=== PATIENT | male | born 1950 | race Hispanic/Latino ===

== ENCOUNTER 2017-08-10 07:41 | Inpatient (IN) | payer OTHER ==
[2017-08-07 11:16] VITALS: BP 160/88
[2017-08-07 11:24] LABS: BASOPHILS % (AUTO) 0.7 % (0.0-5.0); EOSINOPHILS % (AUTO) 2.9 % (0.0-8.0); HEMATOCRIT 41.7 % (42-54); LYMPHOCYTES % (AUTO) 24.6 % (21.0-51.0); MEAN CORPUSCULAR HEMOGLOBIN 29.9 pg (27.0-33.0); MEAN CORPUSCULAR HGB CONC 34.6 g/dL (32.0-36.0); MEAN CORPUSCULAR VOLUME 86.2 fL (79-99); MONOCYTES % (AUTO) 7.1 % (3.0-13.0); NEUTROPHILS % (AUTO) 64.7 % (40.0-77.0); PLATELET COUNT (AUTO) 221 K/uL (130-400); RED BLOOD CELL COUNT(AUTO) 4.83 MIL/uL (4.50-6.20); RED CELL DISTRIBUTION WIDTH 13.2 % (11.0-15.5); WHITE BLOOD COUNT (AUTO) 7.5 K/uL (4.8-10.8)
[2017-08-07 11:26] LABS: APPEARANCE,URINE Clear (CLEAR); BILIRUBIN,URINE Negative (NEGATIVE); COLOR,URINE Yellow (YELLOW); GLUCOSE, URINE (UA) 250 mg/dL (NEGATIVE); KETONES,URINE Negative (NEGATIVE); LEUKOCYTE ESTERASE ,URINE Negative (NEGATIVE); NITRATE,URINE Negative (NEGATIVE); OCCULT BLOOD,URINE Nonhemolyzed Trace (NEGATIVE); PH,URINE 5.5 (5.0-8.0); PROTEIN,URINE Negative (NEGATIVE)
[2017-08-07 11:30] LABS: CREATININE 1.1 mg/dL (0.5-1.5); POTASSIUM 4.5 mmol/L (3.5-5.1)
[2017-08-07 11:35] LABS: INR 0.93 (0.85-1.15); PARTIAL THROMBOPLASTIN TIME 24.9 SEC (26.3-35.5); PROTHROMBIN TIME 9.8 SEC (9.6-11.6)
[2017-08-07 11:50] LABS: BACTERIA,URINE Rare /HPF (None Seen); RBC,URINE 0-1 /HPF (0-1); SQUAMOUS EPITHELIAL CELL,UR Rare /LPF (0-2); WBC,URINE 0-1 /HPF (0-1)
[2017-08-10] VITALS (12 sets, daily range): BP systolic 113–181; BP diastolic 56–107
[~2017-08-10] VITALS: Ht 172.7 cm; Wt 99.9 kg
[~2017-08-10 07:41] MED LIST: ASPI-1181 PO; ENAL10TA PO; LEVO75TA10 PO; METF500T6 PO
[2017-08-10] MEDS ORDERED: ENAL10TA PO (08:41)
[2017-08-10] MEDS ORDERED: SODIUM CHLORIDE 0.9% 1000ML 1,000 ML IV ONE (08:48)
[2017-08-10] MEDS: CEFUROXIME SODIUM 1.5 GM VIAL IVP SCH (10:00)
[2017-08-10] MEDS ORDERED: LIDOCAINE HCL 2% 20ML ONE (10:16)
[2017-08-10] MEDS ORDERED: IOPAMIDOL-370 100 ML VIAL IV ONE (10:16)
[2017-08-10] MEDS ORDERED: ISOVUE-370 50ML VIAL IV ONE (10:16)
[2017-08-10] MEDS ORDERED: NITROGLYCERIN 5 MG/ML 10 ML VIAL IV ONE (10:16)
[2017-08-10] MEDS ORDERED: BIVALIRUDIN 250 MG/VIAL IV ONE (10:17)
[2017-08-10] MEDS ORDERED: FENTANYL CITRATE PF 50 MCG/1 ML 2ML VIAL ONE (10:55)
[2017-08-10] MEDS ORDERED: MIDAZOLAM HCL 1 MG/ML 2ML VIAL ONE (10:55)
[2017-08-10] MEDS ORDERED: SODIUM CHLORIDE 0.9% 1000ML 1,000 ML IV SCH (11:29)
[2017-08-10] MEDS ORDERED: NITROGLYCERIN 0.4 MG SL TAB SL PRN (11:30)
[2017-08-10] MEDS ORDERED: GLUCAGON 1MG KIT 1 MG ML IM PRN (11:30)
[2017-08-10] MEDS ORDERED: METOPROLOL TARTRATE 1 MG/ML 5ML VIAL IV PRN (11:30)
[2017-08-10] MEDS: NITROGLYCERIN 1GM/1 INCH PACKET TD SCH ×4 (11:30→23:48)
[2017-08-10] MEDS ORDERED: DEXTROSE 50%-WATER 50 ML DISP.SYRIN IV PRN (11:30)
[2017-08-10] MEDS ORDERED: CALCIUM CHLORIDE 100 MG/ML 10 ML SYG IVP ONE (12:00)
[2017-08-10] MEDS ORDERED: HEPARIN SODIUM 1000UNIT/ML 10ML VIAL IV ONE (12:00)
[2017-08-10] MEDS ORDERED: CEFUROXIME 1.5GM+NS 100ML 100 ML IV SCH (14:00)
[2017-08-10] MEDS ORDERED: WATER FOR INJECTION,STERILE 20 ML VIAL IJ SCH (14:15)
[2017-08-10 15:04] LABS: HEMOGLOBIN A1C 8.4 % (4.0-6.0)
[2017-08-10] MEDS ORDERED: ATORVASTATIN CALCIUM 20 MG TABLET PO SCH (21:00)
[2017-08-10] MEDS ORDERED: ACETAMINOPHEN 325 MG TAB PO PRN (23:15)
[2017-08-10] MEDS ORDERED: POTASSIUM CHLORIDE 10% ELIXIR 20 MEQ/15 ML UDCUP PO PRN (23:15)
[2017-08-10] MEDS ORDERED: POTASSIUM CHLORIDE 20 MEQ ERTAB PO PRN (23:15)
[2017-08-10] MEDS ORDERED: POTASSIUM CHLORIDE 20MEQ/100ML 100 ML IV PRN (23:15)
[2017-08-11] VITALS (19 sets, daily range): BP systolic 113–190; BP diastolic 57–106
[2017-08-11] MEDS: NITROGLYCERIN 1GM/1 INCH PACKET TD SCH (05:03)
[2017-08-11 05:11] LABS: BASOPHILS % (AUTO) 0.7 % (0.0-5.0); EOSINOPHILS % (AUTO) 1.8 % (0.0-8.0); HEMATOCRIT 39.6 % (42-54); LYMPHOCYTES % (AUTO) 23.6 % (21.0-51.0); MEAN CORPUSCULAR HEMOGLOBIN 29.4 pg (27.0-33.0); MEAN CORPUSCULAR HGB CONC 33.7 g/dL (32.0-36.0); MEAN CORPUSCULAR VOLUME 87.4 fL (79-99); MONOCYTES % (AUTO) 7.3 % (3.0-13.0); NEUTROPHILS % (AUTO) 66.6 % (40.0-77.0); PLATELET COUNT (AUTO) 204 K/uL (130-400); RED BLOOD CELL COUNT(AUTO) 4.53 MIL/uL (4.50-6.20); RED CELL DISTRIBUTION WIDTH 13.4 % (11.0-15.5); WHITE BLOOD COUNT (AUTO) 7.7 K/uL (4.8-10.8)
[2017-08-11 05:21] LABS: INR 0.95 (0.85-1.15); PARTIAL THROMBOPLASTIN TIME 24.5 SEC (26.3-35.5)
[2017-08-11 05:22] LABS: CREATININE 1.3 mg/dL (0.5-1.5); POTASSIUM 3.9 mmol/L (3.5-5.1)
[2017-08-11] MEDS ORDERED: LEVOTHYROXINE 75 MCG TABLET PO SCH (06:30)
[2017-08-11] MEDS ORDERED: BACITRACIN 50,000 UNIT VIAL ONE (06:40)
[2017-08-11] MEDS ORDERED: PAPAVERINE HCL 30 MG/ML 2ML VIAL ONE (06:40)
[2017-08-11] MEDS ORDERED: HEPARIN SODIUM 1000UNIT/ML 10ML VIAL ONE ×2 (06:40→09:07)
[2017-08-11] MEDS ORDERED: OCTYL 2-CYANOACRYLATE 1 EACH TP ONE (06:40)
[2017-08-11] MEDS ORDERED: NITROGLYCERIN 50 MG/D5% WATER 1 BOT ONE (06:57)
[2017-08-11] MEDS ORDERED: INSULIN HUMULIN R 100 UNIT/ML 3ML SQ SCH (07:30)
[2017-08-11] MEDS ORDERED: ASPIRIN 81 MG EC TAB PO SCH (09:00)
[2017-08-11] MEDS ORDERED: ENALAPRIL MALEATE 10 MG TABLET PO SCH (09:00)
[2017-08-11] MEDS ORDERED: PANTOPRAZOLE SODIUM 40 MG TABLET.DR PO SCH (09:00)
[2017-08-11] MEDS ORDERED: AMINOCAPROIC ACID 250 MG/ML 20 ML VIAL IV ONE (09:07)
[2017-08-11] MEDS ORDERED: PROTAMINE SULFATE 10 MG/ML 25ML VIAL IV ONE (09:07)
[2017-08-11] MEDS ORDERED: MIDAZOLAM HCL 1 MG/ML 5ML VIAL ONE (09:07)
[2017-08-11] MEDS ORDERED: AMIODARONE HCL 900MG/18ML IV ONE (09:07)
[2017-08-11] MEDS ORDERED: PROPOFOL 10 MG/ML 20ML VIAL IV ONE (09:07)
[2017-08-11] MEDS ORDERED: GLYCOPYRROLATE 0.2 MG/ML 5 ML VIAL ONE (09:07)
[2017-08-11] MEDS ORDERED: FENTANYL CITRATE PF 50 MCG/1 ML 20ML VIAL IJ ONE (09:07)
[2017-08-11] MEDS ORDERED: NOREPINEPHRINE BITARTRATE 1 MG/1 ML ML IV ONE (09:07)
[2017-08-11] MEDS ORDERED: CALCIUM CHLORIDE 100 MG/ML 10 ML SYG IVP ONE (09:07)
[2017-08-11] MEDS ORDERED: EPINEPHRINE 1 MG/ML AMPULE ONE (09:07)
[2017-08-11] MEDS ORDERED: NEOSTIGMINE METHYLSULFATE 1MG/ML IV ONE (09:07)
[2017-08-11] MEDS ORDERED: MILRINONE-D5W 20 MG/100 ML 0 ML IV ONE (09:07)
[2017-08-11] MEDS ORDERED: ROCURONIUM BROMIDE 10MG/1ML 5ML VL ONE ×2 (09:07→09:11)
[2017-08-11] MEDS ORDERED: LIDOCAINE PF 2% 5ML ABBOJECT ONE (09:07)
[2017-08-11] MEDS ORDERED: ESMOLOL HCL 10 MG/ML 10 ML VIAL ONE (09:07)
[2017-08-11] MEDS ORDERED: KETAMINE HCL 100 MG/ML 5ML VIAL IJ ONE (09:08)
[2017-08-11] MEDS ORDERED: SODIUM BICARB 8.4% 50ML SYRINGE ONE ×2 (09:11→14:26)
[2017-08-11] MEDS ORDERED: MIDAZOLAM HCL 1 MG/ML 2ML VIAL ONE (09:12)
[2017-08-11] MEDS ORDERED: SODIUM CHLORIDE 0.9% 1000ML 1,000 ML IV ONE (10:00)
[2017-08-11] MEDS: CEFUROXIME SODIUM 1.5 GM VIAL IVP SCH ×2 (11:47→22:01)
[2017-08-11 12:00] LABS: ABG BASE EXCESS -1.2 mmol/L (-2.0-3.0); ABG HCO3 24.6 mmol/L (21.0-28.0); ABG OXYGEN SATURATION 79.6 % (95.0-99.0); ABG PCO2 45 mmHg (35-48)
[2017-08-11] MEDS ORDERED: THROMBIN-JMI 5000 UNIT/VIAL TP ONE (12:02)
[2017-08-11] MEDS ORDERED: SODIUM CHLORIDE 0.9% 1000ML 1,000 ML IV SCH (14:15)
[2017-08-11] MEDS ORDERED: POTASSIUM PHOS 15 mMOL+NS250ML 250 ML IV PRN (14:15)
[2017-08-11] MEDS ORDERED: ALBUMIN (HUMAN) 5% 250 ML IV PRN (14:15)
[2017-08-11] MEDS ORDERED: CALCIUM GLUCONATE 1 GM in SODIUM CHLORIDE 0.9% 50 ML IV PRN (14:15)
[2017-08-11] MEDS ORDERED: EPINEPHRINE 2 MG in SODIUM CHLORIDE 0.9% 250 ML IV PRN (14:15)
[2017-08-11] MEDS ORDERED: ONDANSETRON HCL 4 MG/2 ML VIAL IV PRN (14:15)
[2017-08-11] MEDS ORDERED: NITROGLYCERIN 50 MG/D5% WATER 250 BOT IV SCH (14:15)
[2017-08-11] MEDS ORDERED: AMINOCAPROIC ACID 15,000 MG in SODIUM CHLORIDE 0.9% 250 ML IV SCH (14:15)
[2017-08-11] MEDS ORDERED: SODIUM CHLORIDE 0.9% 250 ML IV PRN (14:15)
[2017-08-11] MEDS ORDERED: ACETAMINOPHEN 650 MG SUPPOSITORY RC PRN (14:15)
[2017-08-11] MEDS ORDERED: MORPHINE SULFATE 2 MG/ML 1ML SYG IV PRN (14:15)
[2017-08-11] MEDS ORDERED: GLUCAGON 1MG KIT 1 MG ML IM PRN (14:15)
[2017-08-11] MEDS ORDERED: HYDROCODONE/ACETAMINOPHEN 5/325 MG TAB PO PRN ×2 (14:15)
[2017-08-11] MEDS ORDERED: SODIUM BICARB 8.4% 50ML SYRINGE IV PRN (14:15)
[2017-08-11] MEDS ORDERED: SODIUM CHLORIDE 0.9% 10 ML VIAL IVP PRN (14:15)
[2017-08-11] MEDS ORDERED: DEXTROSE 50%-WATER 50 ML DISP.SYRIN IV PRN (14:15)
[2017-08-11] MEDS ORDERED: NOREPINEPHRINE 4MG/NS 250ML 250 ML IV PRN (14:15)
[2017-08-11 14:21] LABS: ABG BASE EXCESS -5.8 mmol/L (-2.0-3.0); ABG HCO3 19.6 mmol/L (21.0-28.0); ABG OXYGEN SATURATION 98.1 % (95.0-99.0); ABG PCO2 38 mmHg (35-48)
[2017-08-11] MEDS ORDERED: MORPHINE SULFATE 10 MG/ML 1ML SYG ONE (14:24)
[2017-08-11 15:32] LABS: ABG BASE EXCESS -1.6 mmol/L (-2.0-3.0); ABG HCO3 23.9 mmol/L (21.0-28.0); ABG PCO2 43 mmHg (35-48)
[2017-08-11 15:43] LABS: HEMATOCRIT 37.4 % (42-54); MEAN CORPUSCULAR HEMOGLOBIN 29.6 pg (27.0-33.0); MEAN CORPUSCULAR VOLUME 86.8 fL (79-99); PLATELET COUNT (AUTO) 215 K/uL (130-400); RED BLOOD CELL COUNT(AUTO) 4.31 MIL/uL (4.50-6.20); RED CELL DISTRIBUTION WIDTH 13.4 % (11.0-15.5); WHITE BLOOD COUNT (AUTO) 16.2 K/uL (4.8-10.8)
[2017-08-11 15:49] LABS: CREATININE 1.3 mg/dL (0.5-1.5); MAGNESIUM 1.5 mg/dL (1.80-2.40); PHOSPHORUS 4.5 mg/dL (2.5-4.9); POTASSIUM 3.9 mmol/L (3.5-5.1)
[2017-08-11] MEDS: PROPOFOL 1000 MG/100 ML 100 ML IV PRN ×2 (16:11→18:33)
[2017-08-11] MEDS: NICARDIPINE HCL 100 MG in SODIUM CHLORIDE 0.9% 100 ML IV PRN ×2 (16:12→19:19)
[2017-08-11] MEDS: MAGNESIUM 2GM PREMIX 50ML 50 ML IV PRN (16:13)
[2017-08-11] MEDS: POTASSIUM CHLORIDE 20MEQ/100ML 100 ML IV PRN ×2 (16:24→21:07)
[2017-08-11 16:28] LABS: ABG HCO3 23.1 mmol/L (21.0-28.0); ABG OXYGEN SATURATION 93.2 % (95.0-99.0); ABG PCO2 41 mmHg (35-48)
[2017-08-11] MEDS: INSULIN REGULAR, HUMAN 3ML 100 UNIT in SODIUM CHLORIDE 0.9% 99 ML IV SCH ×2 (16:51)
[2017-08-11] MEDS ORDERED: FUROSEMIDE 10 MG/ML 4ML VIAL IV SCH (18:15)
[2017-08-11] MEDS ORDERED: LORAZEPAM 2 MG/ML 1 ML VIAL IVP PRN (18:15)
[2017-08-11] MEDS: MORPHINE SULFATE 4 MG/1ML SYG IV PRN ×2 (18:48→22:30)
[2017-08-11 20:22] LABS: ABG BASE EXCESS -2.5 mmol/L (-2.0-3.0); ABG OXYGEN SATURATION 95.1 % (95.0-99.0); ABG PCO2 42 mmHg (35-48)
[2017-08-11 21:03] LABS: MAGNESIUM 2.1 mg/dL (1.80-2.40); POTASSIUM 4.1 mmol/L (3.5-5.1)
[2017-08-11] MEDS: LORAZEPAM 2 MG/ML 1 ML VIAL IVP PRN (21:41)
[2017-08-11] MEDS: WATER FOR INJECTION,STERILE 20 ML VIAL IJ SCH (22:01)
[2017-08-11] MEDS ORDERED: CEFUROXIME 1.5GM+NS 100ML 100 ML IV SCH (22:15)
[2017-08-11] MEDS: IPRATROPIUM/ALBUTEROL SULFATE 3 ML SOLUTION IH SCH (22:18)
[2017-08-12] VITALS (25 sets, daily range): BP systolic 76–166; BP diastolic 42–92
[2017-08-12] MEDS: INSULIN REGULAR, HUMAN 3ML 100 UNIT in SODIUM CHLORIDE 0.9% 99 ML IV SCH ×2 (00:08)
[2017-08-12] MEDS: PROPOFOL 1000 MG/100 ML 100 ML IV PRN ×2 (00:09→10:24)
[2017-08-12] MEDS: POTASSIUM CHLORIDE 20MEQ/100ML 100 ML IV PRN (00:38)
[2017-08-12] MEDS: LORAZEPAM 2 MG/ML 1 ML VIAL IVP PRN (01:55)
[2017-08-12] MEDS: IPRATROPIUM/ALBUTEROL SULFATE 3 ML SOLUTION IH SCH ×6 (02:24→22:36)
[2017-08-12] MEDS: MORPHINE SULFATE 4 MG/1ML SYG IV PRN ×4 (04:20→21:00)
[2017-08-12 04:29] LABS: BASOPHILS % (AUTO) 0.2 % (0.0-5.0); HEMATOCRIT 40.3 % (42-54); LYMPHOCYTES % (AUTO) 5.4 % (21.0-51.0); MEAN CORPUSCULAR HGB CONC 34.1 g/dL (32.0-36.0); MEAN CORPUSCULAR VOLUME 87.9 fL (79-99); MONOCYTES % (AUTO) 8.5 % (3.0-13.0); NEUTROPHILS % (AUTO) 85.9 % (40.0-77.0); PLATELET COUNT (AUTO) 248 K/uL (130-400); RED BLOOD CELL COUNT(AUTO) 4.58 MIL/uL (4.50-6.20); RED CELL DISTRIBUTION WIDTH 13.5 % (11.0-15.5)
[2017-08-12 04:43] LABS: CREATININE 1.3 mg/dL (0.5-1.5); MAGNESIUM 2.2 mg/dL (1.80-2.40); PHOSPHORUS 2.6 mg/dL (2.5-4.9); POTASSIUM 4.4 mmol/L (3.5-5.1)
[2017-08-12] MEDS ORDERED: HYDRALAZINE HCL 20 MG/ML VIAL IV PRN (08:00)
[2017-08-12] MEDS: LEVOTHYROXINE 75 MCG TABLET PO SCH (08:28)
[2017-08-12] MEDS: FAMOTIDINE 20MG TAB 20 MG TAB PO SCH ×2 (08:28→20:09)
[2017-08-12] MEDS: ASPIRIN 81MG TAB.CHEW PO SCH (08:28)
[2017-08-12] MEDS: METOPROLOL TARTRATE 25 MG TAB PO SCH ×2 (08:29→20:11)
[2017-08-12 09:00] LABS: ABG BASE EXCESS 0.4 mmol/L (-2.0-3.0); ABG HCO3 25.4 mmol/L (21.0-28.0); ABG OXYGEN SATURATION 87.9 % (95.0-99.0); ABG PCO2 43 mmHg (35-48)
[2017-08-12] MEDS ORDERED: PANTOPRAZOLE SODIUM 40 MG TABLET.DR PO SCH (09:00)
[2017-08-12] MEDS ORDERED: FUROSEMIDE 10 MG/ML 4ML VIAL IV SCH (09:15)
[2017-08-12] MEDS: WATER FOR INJECTION,STERILE 20 ML VIAL IJ SCH ×2 (09:26→21:58)
[2017-08-12] MEDS: CEFUROXIME SODIUM 1.5 GM VIAL IVP SCH ×2 (09:26→21:58)
[2017-08-12 13:22] LABS: ABG BASE EXCESS 1.3 mmol/L (-2.0-3.0); ABG HCO3 26.5 mmol/L (21.0-28.0); ABG OXYGEN SATURATION 91.6 % (95.0-99.0); ABG PCO2 44 mmHg (35-48)
[2017-08-12 16:39] LABS: CREATININE 1.6 mg/dL (0.5-1.5); POTASSIUM 4.6 mmol/L (3.5-5.1)
[2017-08-12] MEDS ORDERED: VANCOMYCIN PROTOCOL PER PHARMACY IV SCH (18:30)
[2017-08-12] MEDS ORDERED: PROPOFOL 1000 MG/100 ML 100 ML IV ONE (18:46)
[2017-08-12] MEDS ORDERED: PROPOFOL 1000 MG/100 ML IV PRN (19:00)
[2017-08-12] MEDS ORDERED: VANCOMYCIN 2 GM in SODIUM CHLORIDE 0.9% 500ML 500 ML IV ONE (19:00)
[2017-08-12] MEDS ORDERED: LEVOFLOXACIN 500 MG/D5W 100 ML 100 ML IV SCH (19:00)
[2017-08-12] MEDS ORDERED: COMPOUND IV REFRIGERATED 1 EACH IVSOLN MISC PRN (19:00)
[2017-08-12] MEDS: ATORVASTATIN CALCIUM 40 MG TABLET PO SCH (20:09)
[2017-08-12] MEDS: ZOSYN 3.375GM+NS 50ML 50 ML IV SCH (20:09)
[2017-08-12] MEDS: ACETAMINOPHEN 325 MG TAB PO PRN (20:10)
[2017-08-12] MEDS: SODIUM CHLORIDE 0.9% 500ML 500 ML IV SCH (22:14)
[2017-08-12] MEDS ORDERED: AMIODARONE HCL 900MG/18ML IV ONE (23:00)
[2017-08-12] MEDS ORDERED: AMIODARONE HCL 150 MG in DEXTROSE 5%-WATER 100 ML IV SCH (23:45)
[2017-08-12] MEDS: AMIODARONE HCL 900 MG in DEXTROSE 5%-WATER 500 ML IV SCH (23:55)
[2017-08-13] VITALS (45 sets, daily range): BP systolic 83–166; BP diastolic 40–83
[2017-08-13 00:57] LABS: ABG BASE EXCESS -1.1 mmol/L (-2.0-3.0); ABG HCO3 23.3 mmol/L (21.0-28.0); ABG OXYGEN SATURATION 93.2 % (95.0-99.0); ABG PCO2 38 mmHg (35-48)
[2017-08-13] MEDS: MAGNESIUM 2GM PREMIX 50ML 50 ML IV PRN (01:34)
[2017-08-13] MEDS: IPRATROPIUM/ALBUTEROL SULFATE 3 ML SOLUTION IH SCH ×4 (02:00→13:38)
[2017-08-13] MEDS ORDERED: DILTIAZEM HCL 125 MG/25 ML VIAL IV ONE (02:36)
[2017-08-13] MEDS ORDERED: AMIODARONE HCL 900MG/18ML IV ONE (02:36)
[2017-08-13] MEDS ORDERED: AMIODARONE HCL 150 MG in DEXTROSE 5%-WATER 100 ML IV SCH (03:15)
[2017-08-13] MEDS: ZOSYN 3.375GM+NS 50ML 50 ML IV SCH ×3 (04:50→21:09)
[2017-08-13 06:05] LABS: BASOPHILS % (AUTO) 0.3 % (0.0-5.0); HEMATOCRIT 36.3 % (42-54); LYMPHOCYTES % (AUTO) 6.4 % (21.0-51.0); MEAN CORPUSCULAR HEMOGLOBIN 29.2 pg (27.0-33.0); MEAN CORPUSCULAR HGB CONC 32.9 g/dL (32.0-36.0); MEAN CORPUSCULAR VOLUME 88.8 fL (79-99); MONOCYTES % (AUTO) 6.3 % (3.0-13.0); PLATELET COUNT (AUTO) 147 K/uL (130-400); RED BLOOD CELL COUNT(AUTO) 4.09 MIL/uL (4.50-6.20); RED CELL DISTRIBUTION WIDTH 13.7 % (11.0-15.5); WHITE BLOOD COUNT (AUTO) 13.9 K/uL (4.8-10.8)
[2017-08-13 06:13] LABS: CREATININE 2.2 mg/dL (0.5-1.5); POTASSIUM 4.6 mmol/L (3.5-5.1)
[2017-08-13] MEDS: LEVOTHYROXINE 75 MCG TABLET PO SCH (06:19)
[2017-08-13] MEDS: ACETAMINOPHEN 325 MG TAB PO PRN (06:20)
[2017-08-13] MEDS: AMIODARONE HCL 900 MG in DEXTROSE 5%-WATER 500 ML IV SCH (06:33)
[2017-08-13] MEDS: METOPROLOL TARTRATE 1 MG/ML 5ML VIAL IV PRN ×3 (08:05→20:32)
[2017-08-13] MEDS: METOPROLOL TARTRATE 25 MG TAB PO SCH ×2 (09:00→21:10)
[2017-08-13] MEDS: ASPIRIN 81MG TAB.CHEW PO SCH (09:15)
[2017-08-13] MEDS: FAMOTIDINE 20MG TAB 20 MG TAB PO SCH (09:15)
[2017-08-13] MEDS: FENTANYL 2500MCG+NS 250ML 250 ML IV PRN (09:58)
[2017-08-13] MEDS ORDERED: GLUCAGON 1MG KIT 1 MG ML IM PRN (10:30)
[2017-08-13] MEDS ORDERED: DEXTROSE 50%-WATER 50 ML DISP.SYRIN IV PRN (10:30)
[2017-08-13] MEDS: MIDAZOLAM 100MG-0.9% NS 100ML 100 ML IV PRN (10:46)
[2017-08-13 11:27] LABS: ABG BASE EXCESS -1.7 mmol/L (-2.0-3.0); ABG HCO3 23.1 mmol/L (21.0-28.0); ABG OXYGEN SATURATION 94.5 % (95.0-99.0); ABG PCO2 40 mmHg (35-48)
[2017-08-13] MEDS: INSULIN HUMULIN R 100 UNIT/ML 3ML SQ SCH ×2 (12:43→16:30)
[2017-08-13] MEDS ORDERED: RENAL DOSE IV SCH (12:45)
[2017-08-13] MEDS: PHENYLEPHRINE HCL 50 MG in SODIUM CHLORIDE 0.9% 250 ML IV SCH (13:36)
[2017-08-13] MEDS ORDERED: VANCOMYCIN 1.5 GM in SODIUM CHLORIDE 0.9% 250 ML IV SCH (17:00)
[2017-08-13] MEDS: CLINDAMYCIN 900 MG/D5% WATER 50 ML IV SCH (18:00)
[2017-08-13] MEDS: IPRATROPIUM 0.5 MG/2.5 ML INH IH SCH ×2 (18:00→22:00)
[2017-08-13 18:14] LABS: CREATININE 2.3 mg/dL (0.5-1.5); POTASSIUM 4.4 mmol/L (3.5-5.1)
[2017-08-13] MEDS ORDERED: DIGOXIN 250 MCG/ML 2ML AMP IV ONE (20:00)
[2017-08-13] MEDS: DILTIAZEM 125MG+100 ML NS 125 ML IV SCH (20:24)
[2017-08-13] MEDS ORDERED: FUROSEMIDE 10 MG/ML 4ML VIAL IV SCH (21:00)
[2017-08-13] MEDS: ATORVASTATIN CALCIUM 40 MG TABLET PO SCH (21:10)
[2017-08-13] MEDS: SODIUM CHLORIDE 0.9% 500ML 500 ML IV SCH (21:11)
[2017-08-13 21:20] LABS: ABG BASE EXCESS -0.9 mmol/L (-2.0-3.0); ABG HCO3 25.7 mmol/L (21.0-28.0); ABG OXYGEN SATURATION 90.7 % (95.0-99.0); ABG PCO2 50 mmHg (35-48)
[2017-08-14] VITALS (24 sets, daily range): BP systolic 80–179; BP diastolic 49–87
[2017-08-14] MEDS ORDERED: INSULIN HUMULIN R 100 UNIT/ML 3ML ONE (00:08)
[2017-08-14] MEDS: IPRATROPIUM/ALBUTEROL SULFATE 3 ML SOLUTION IH SCH ×5 (00:46→23:56)
[2017-08-14] MEDS: CLINDAMYCIN 900 MG/D5% WATER 50 ML IV SCH ×3 (01:03→17:19)
[2017-08-14] MEDS: ACETAMINOPHEN ELIXIR 650 MG/20.3 ML UDCUP PEG PRN ×2 (01:04→12:40)
[2017-08-14 04:05] LABS: HEMATOCRIT 33.2 % (42-54); MEAN CORPUSCULAR HEMOGLOBIN 30.4 pg (27.0-33.0); MEAN CORPUSCULAR VOLUME 89.5 fL (79-99); PLATELET COUNT (AUTO) 189 K/uL (130-400); RED BLOOD CELL COUNT(AUTO) 3.71 MIL/uL (4.50-6.20); RED CELL DISTRIBUTION WIDTH 13.2 % (11.0-15.5); WHITE BLOOD COUNT (AUTO) 13.3 K/uL (4.8-10.8)
[2017-08-14 04:13] LABS: CREATININE 2.9 mg/dL (0.5-1.5); POTASSIUM 4.5 mmol/L (3.5-5.1)
[2017-08-14] MEDS: ZOSYN 3.375GM+NS 50ML 50 ML IV SCH (05:06)
[2017-08-14] MEDS: IPRATROPIUM 0.5 MG/2.5 ML INH IH SCH ×3 (06:00→22:00)
[2017-08-14] MEDS: METOPROLOL TARTRATE 1 MG/ML 5ML VIAL IV PRN ×2 (06:02→12:36)
[2017-08-14 06:04] LABS: ABG HCO3 24.3 mmol/L (21.0-28.0); ABG PCO2 52 mmHg (35-48)
[2017-08-14] MEDS: DILTIAZEM 125MG+100 ML NS 125 ML IV SCH (07:01)
[2017-08-14] MEDS ORDERED: INSULIN HUMULIN R 100 UNIT/ML 3ML SQ SCH ×3 (07:30)
[2017-08-14 07:37] LABS: ABG BASE EXCESS -4.3 mmol/L (-2.0-3.0); ABG HCO3 21.2 mmol/L (21.0-28.0); ABG OXYGEN SATURATION 91.9 % (95.0-99.0); ABG PCO2 41 mmHg (35-48)
[2017-08-14] MEDS ORDERED: PHARMACY COMMUNICATION MISC SCH ×2 (07:45→16:30)
[2017-08-14] MEDS ORDERED: SODIUM BICARB 50MEQ 50ML VIAL ONE (07:52)
[2017-08-14] MEDS ORDERED: CALCIUM GLUCONATE 1 GM in SODIUM CHLORIDE 0.9% 50 ML IV SCH (07:59)
[2017-08-14] MEDS: MIDAZOLAM 100MG-0.9% NS 100ML 100 ML IV PRN (08:19)
[2017-08-14] MEDS: FENTANYL 2500MCG+NS 250ML 250 ML IV PRN (08:20)
[2017-08-14] MEDS: LEVOTHYROXINE 75 MCG TABLET PO SCH (08:23)
[2017-08-14] MEDS: FAMOTIDINE 20MG TAB 20 MG TAB PO SCH (08:23)
[2017-08-14] MEDS: LACTOBACILLUS RHAMNOSUS GG 1 EACH CAP.SPRINK PO SCH (08:23)
[2017-08-14] MEDS: ASPIRIN 81MG TAB.CHEW PO SCH (08:23)
[2017-08-14] MEDS: METOPROLOL TARTRATE 25 MG TAB PO SCH ×2 (08:24→22:00)
[2017-08-14] MEDS: FUROSEMIDE 10 MG/ML 2ML VIAL IV SCH ×2 (08:24→19:43)
[2017-08-14] MEDS: AMIODARONE HCL 200 MG TABLET PO SCH ×3 (08:25→20:41)
[2017-08-14] MEDS: INSULIN HUMULIN R 100 UNIT/ML 3ML SQ SCH ×3 (11:59→23:55)
[2017-08-14 16:23] LABS: CREATININE 4.2 mg/dL (0.5-1.5); POTASSIUM 4.7 mmol/L (3.5-5.1)
[2017-08-14] MEDS ORDERED: SODIUM CHLORIDE 0.9% 1000ML 1,000 ML IV ONE (16:30)
[2017-08-14] MEDS ORDERED: RENAL DOSE IV ONE (16:30)
[2017-08-14] MEDS: SODIUM CHLORIDE 0.9% 1000ML 1,000 ML IV SCH (16:54)
[2017-08-14] MEDS ORDERED: ZOSYN 3.375GM+NS 50ML 50 ML IV SCH (17:00)
[2017-08-14] MEDS: HEPARIN SODIUM 5000UNIT/ML 1ML VIAL SQ SCH (17:20)
[2017-08-14] MEDS: CEFEPIME HCL 2 GM VIAL IVP SCH (17:22)
[2017-08-14] MEDS: WATER FOR INJECTION,STERILE 20 ML VIAL IJ SCH (17:22)
[2017-08-14] MEDS ORDERED: LEVOFLOXACIN 500 MG/D5W 100 ML 100 ML IV SCH (18:00)
[2017-08-14] MEDS: PHENYLEPHRINE HCL 50 MG in SODIUM CHLORIDE 0.9% 250 ML IV SCH (18:50)
[2017-08-14] MEDS: ALBUMIN (HUMAN) 5% 250 ML IV SCH (20:27)
[2017-08-14] MEDS: AMIODARONE HCL 900 MG in DEXTROSE 5%-WATER 500 ML IV SCH (20:33)
[2017-08-14] MEDS: ATORVASTATIN CALCIUM 40 MG TABLET PO SCH (20:41)
[2017-08-15] VITALS (24 sets, daily range): BP systolic 97–174; BP diastolic 53–86
[2017-08-15] MEDS: FENTANYL 2500MCG+NS 250ML 250 ML IV PRN (00:23)
[2017-08-15] MEDS: CLINDAMYCIN 900 MG/D5% WATER 50 ML IV SCH ×3 (01:45→17:31)
[2017-08-15] MEDS: HEPARIN SODIUM 5000UNIT/ML 1ML VIAL SQ SCH ×2 (03:34→17:31)
[2017-08-15 04:18] LABS: HEMATOCRIT 28.5 % (42-54); MEAN CORPUSCULAR HEMOGLOBIN 29.4 pg (27.0-33.0); MEAN CORPUSCULAR HGB CONC 32.9 g/dL (32.0-36.0); MEAN CORPUSCULAR VOLUME 89.3 fL (79-99); PLATELET COUNT (AUTO) 163 K/uL (130-400); RED BLOOD CELL COUNT(AUTO) 3.19 MIL/uL (4.50-6.20); RED CELL DISTRIBUTION WIDTH 13.5 % (11.0-15.5); WHITE BLOOD COUNT (AUTO) 12.5 K/uL (4.8-10.8)
[2017-08-15 04:25] LABS: POTASSIUM 4.6 mmol/L (3.5-5.1)
[2017-08-15 04:40] LABS: B-TYPE NATRIURETIC PEPTIDE 779 pg/mL (0-100)
[2017-08-15] MEDS: LEVOTHYROXINE 75 MCG TABLET PO SCH (05:14)
[2017-08-15] MEDS: INSULIN HUMULIN R 100 UNIT/ML 3ML SQ SCH ×4 (05:42→23:55)
[2017-08-15] MEDS: IPRATROPIUM/ALBUTEROL SULFATE 3 ML SOLUTION IH SCH ×3 (06:21→19:20)
[2017-08-15] MEDS: SODIUM CHLORIDE 0.9% 1000ML 1,000 ML IV SCH (06:24)
[2017-08-15] MEDS: FUROSEMIDE 10 MG/ML 2ML VIAL IV SCH (07:45)
[2017-08-15] MEDS ORDERED: DEXTROSE 5 %-0.45 % NACL 1,000 ML IV SCH (07:45)
[2017-08-15] MEDS: METOPROLOL TARTRATE 1 MG/ML 5ML VIAL IV PRN (07:48)
[2017-08-15] MEDS: ALBUMIN (HUMAN) 5% 250 ML IV SCH (07:48)
[2017-08-15 08:10] LABS: ABG BASE EXCESS -5.3 mmol/L (-2.0-3.0); ABG HCO3 19.8 mmol/L (21.0-28.0); ABG OXYGEN SATURATION 91.7 % (95.0-99.0); ABG PCO2 38 mmHg (35-48)
[2017-08-15] MEDS ORDERED: SODIUM BICARB 50MEQ 50ML VIAL ONE (08:18)
[2017-08-15] MEDS: METOPROLOL TARTRATE 25 MG TAB PO SCH ×2 (09:33→20:14)
[2017-08-15] MEDS: FAMOTIDINE 20MG TAB 20 MG TAB PO SCH (09:33)
[2017-08-15] MEDS: ASPIRIN 81MG TAB.CHEW PO SCH (09:33)
[2017-08-15] MEDS: LACTOBACILLUS RHAMNOSUS GG 1 EACH CAP.SPRINK PO SCH (09:42)
[2017-08-15] MEDS: MIDAZOLAM 100MG-0.9% NS 100ML 100 ML IV PRN (09:51)
[2017-08-15] MEDS: AMIODARONE HCL 900 MG in DEXTROSE 5%-WATER 500 ML IV SCH (11:12)
[2017-08-15 11:22] LABS: % IRON SATURATION 7.8 % (30-44)
[2017-08-15] MEDS: 1/2 NORMAL SALINE 1,000 ML IV SCH (12:49)
[2017-08-15 14:23] LABS: CREATININE,URINE RANDOM 130 mg/dL (30-135); SODIUM,URINE RANDOM 34 mmol/l (40-220)
[2017-08-15] MEDS: METOCLOPRAMIDE 10 MG/2 ML VIAL IV SCH ×2 (14:52→22:44)
[2017-08-15] MEDS: WATER FOR INJECTION,STERILE 20 ML VIAL IJ SCH (17:30)
[2017-08-15] MEDS: CEFEPIME HCL 2 GM VIAL IVP SCH (17:30)
[2017-08-15] MEDS: ATORVASTATIN CALCIUM 40 MG TABLET PO SCH (20:14)
[2017-08-15] MEDS: ACETAMINOPHEN 325 MG TAB PO PRN (23:05)
[2017-08-15] MEDS: SODIUM CHLORIDE 0.9% 500ML 500 ML IV SCH (23:25)
[2017-08-16] VITALS (24 sets, daily range): BP systolic 97–163; BP diastolic 59–113
[2017-08-16] MEDS: FENTANYL 2500MCG+NS 250ML 250 ML IV PRN (00:12)
[2017-08-16] MEDS: IPRATROPIUM/ALBUTEROL SULFATE 3 ML SOLUTION IH SCH ×4 (00:24→18:59)
[2017-08-16] MEDS: 1/2 NORMAL SALINE 1,000 ML IV SCH (01:08)
[2017-08-16] MEDS: CLINDAMYCIN 900 MG/D5% WATER 50 ML IV SCH ×3 (01:08→17:08)
[2017-08-16] MEDS ORDERED: AMIODARONE HCL 900MG/18ML IV ONE (01:28)
[2017-08-16] MEDS: AMIODARONE HCL 900 MG in DEXTROSE 5%-WATER 500 ML IV SCH (01:34)
[2017-08-16] MEDS: HEPARIN SODIUM 5000UNIT/ML 1ML VIAL SQ SCH ×2 (03:20→15:22)
[2017-08-16 04:35] LABS: HEMATOCRIT 27.6 % (42-54); MEAN CORPUSCULAR HEMOGLOBIN 30.6 pg (27.0-33.0); MEAN CORPUSCULAR HGB CONC 34.2 g/dL (32.0-36.0); MEAN CORPUSCULAR VOLUME 89.4 fL (79-99); NUCLEATED RED BLOOD CELLS 0.1 % (0.0-0.19); PLATELET COUNT (AUTO) 165 K/uL (130-400); RED BLOOD CELL COUNT(AUTO) 3.09 MIL/uL (4.50-6.20); RED CELL DISTRIBUTION WIDTH 13.7 % (11.0-15.5); WHITE BLOOD COUNT (AUTO) 12.5 K/uL (4.8-10.8)
[2017-08-16 04:52] LABS: CREATININE 5.8 mg/dL (0.5-1.5); MAGNESIUM 2.5 mg/dL (1.80-2.40); PHOSPHORUS 5.1 mg/dL (2.5-4.9); POTASSIUM 4.3 mmol/L (3.5-5.1)
[2017-08-16] MEDS: LEVOTHYROXINE 75 MCG TABLET PO SCH (04:59)
[2017-08-16 05:27] LABS: ABG BASE EXCESS -5.2 mmol/L (-2.0-3.0); ABG OXYGEN SATURATION 95.3 % (95.0-99.0); ABG PCO2 38 mmHg (35-48)
[2017-08-16] MEDS: INSULIN HUMULIN R 100 UNIT/ML 3ML SQ SCH ×3 (05:42→18:06)
[2017-08-16] MEDS: METOCLOPRAMIDE 10 MG/2 ML VIAL IV SCH ×3 (06:01→23:58)
[2017-08-16] MEDS: LACTOBACILLUS RHAMNOSUS GG 1 EACH CAP.SPRINK PO SCH (08:52)
[2017-08-16] MEDS: ASPIRIN 81MG TAB.CHEW PO SCH (08:52)
[2017-08-16] MEDS: METOPROLOL TARTRATE 25 MG TAB PO SCH ×2 (08:53→20:57)
[2017-08-16] MEDS: FAMOTIDINE 20MG TAB 20 MG TAB PO SCH (08:53)
[2017-08-16] MEDS ORDERED: CALCIUM GLUCONATE 1 GM in SODIUM CHLORIDE 0.9% 50 ML IV SCH (09:00)
[2017-08-16] MEDS ORDERED: SODIUM BICARB 8.4% 50ML SYRINGE IVP SCH (09:00)
[2017-08-16] MEDS ORDERED: SODIUM BICARB 50MEQ 50ML VIAL IV SCH (09:15)
[2017-08-16] MEDS ORDERED: EPOETIN ALFA 10,000 UNIT/ML VIAL SQ SCH (10:15)
[2017-08-16] MEDS: CEFEPIME HCL 2 GM VIAL IVP SCH (17:03)
[2017-08-16] MEDS: WATER FOR INJECTION,STERILE 20 ML VIAL IJ SCH (17:03)
[2017-08-16] MEDS: ATORVASTATIN CALCIUM 40 MG TABLET PO SCH (20:57)
[2017-08-16] MEDS: AMIODARONE HCL 200 MG TABLET PO SCH (20:58)
[2017-08-17] VITALS (26 sets, daily range): BP systolic 104–173; BP diastolic 56–102
[2017-08-17] MEDS: INSULIN HUMULIN R 100 UNIT/ML 3ML SQ SCH ×5 (00:05→23:59)
[2017-08-17] MEDS: IPRATROPIUM/ALBUTEROL SULFATE 3 ML SOLUTION IH SCH ×4 (00:20→19:12)
[2017-08-17] MEDS: CLINDAMYCIN 900 MG/D5% WATER 50 ML IV SCH ×2 (00:51→12:00)
[2017-08-17] MEDS: HEPARIN SODIUM 5000UNIT/ML 1ML VIAL SQ SCH (03:55)
[2017-08-17 05:29] LABS: HEMATOCRIT 29.1 % (42-54); MEAN CORPUSCULAR HEMOGLOBIN 29.9 pg (27.0-33.0); MEAN CORPUSCULAR HGB CONC 33.9 g/dL (32.0-36.0); MEAN CORPUSCULAR VOLUME 88.1 fL (79-99); PLATELET COUNT (AUTO) 207 K/uL (130-400); RED CELL DISTRIBUTION WIDTH 13.9 % (11.0-15.5); WHITE BLOOD COUNT (AUTO) 12.9 K/uL (4.8-10.8)
[2017-08-17 05:39] LABS: BAND NEUTROPHILS % (MANUAL) 5 % (0-2); EOSINOPHILS % (MANUAL) 3 % (1-6); LYMPHOCYTES % (MANUAL) 12 % (22-44); MONOCYTES % (MANUAL) 11 % (2-9); SEGMENTED NEUTROPHILS % 69 % (40-70)
[2017-08-17 05:40] LABS: MAN.DIFF COMMENT-IMPRESSION MANUAL DIFFERENTIAL; PLATELET MORPHOLOGY COMMENT ADEQUATE
[2017-08-17 05:44] LABS: CREATININE 5.6 mg/dL (0.5-1.5); POTASSIUM 4.2 mmol/L (3.5-5.1)
[2017-08-17] MEDS: LEVOTHYROXINE 75 MCG TABLET PO SCH (05:56)
[2017-08-17 06:16] LABS: ABG BASE EXCESS -3.2 mmol/L (-2.0-3.0); ABG HCO3 22.1 mmol/L (21.0-28.0); ABG OXYGEN SATURATION 86.2 % (95.0-99.0); ABG PCO2 41 mmHg (35-48)
[2017-08-17] MEDS: METOCLOPRAMIDE 10 MG/2 ML VIAL IV SCH ×3 (06:50→22:45)
[2017-08-17] MEDS: METOPROLOL TARTRATE 1 MG/ML 5ML VIAL IV PRN ×2 (07:47→09:08)
[2017-08-17] MEDS: LACTOBACILLUS RHAMNOSUS GG 1 EACH CAP.SPRINK PO SCH (08:00)
[2017-08-17] MEDS: METOPROLOL TARTRATE 25 MG TAB PO SCH ×2 (08:00→11:53)
[2017-08-17] MEDS: FENTANYL 2500MCG+NS 250ML 250 ML IV PRN ×2 (08:00→19:19)
[2017-08-17 08:16] LABS: ABG BASE EXCESS -4.1 mmol/L (-2.0-3.0); ABG HCO3 21.4 mmol/L (21.0-28.0); ABG OXYGEN SATURATION 88.5 % (95.0-99.0); ABG PCO2 41 mmHg (35-48)
[2017-08-17] MEDS ORDERED: FUROSEMIDE 10 MG/ML 10ML VIAL ONE (08:36)
[2017-08-17] MEDS ORDERED: FUROSEMIDE 10 MG/ML 4ML VIAL IV SCH ×2 (09:00→13:00)
[2017-08-17] MEDS: MIDAZOLAM 100MG-0.9% NS 100ML 100 ML IV PRN ×2 (09:11→20:16)
[2017-08-17] MEDS: IRON SUCROSE COMPLEX 100 MG in SODIUM CHLORIDE 0.9% 50 ML IV SCH (11:48)
[2017-08-17] MEDS: AMIODARONE HCL 200 MG TABLET PO SCH ×2 (11:52→21:51)
[2017-08-17] MEDS: FAMOTIDINE 20MG TAB 20 MG TAB PO SCH (11:52)
[2017-08-17] MEDS: ASPIRIN 81MG TAB.CHEW PO SCH (11:53)
[2017-08-17] MEDS ORDERED: FUROSEMIDE 100 MG in SODIUM CHLORIDE 0.9% 90 ML IV SCH (13:00)
[2017-08-17] MEDS ORDERED: METOLAZONE 2.5 MG TABLET PO SCH (13:00)
[2017-08-17] MEDS: ACETAMINOPHEN ELIXIR 650 MG/20.3 ML UDCUP PEG PRN (13:19)
[2017-08-17 13:32] LABS: ABG BASE EXCESS -2.7 mmol/L (-2.0-3.0); ABG HCO3 22.9 mmol/L (21.0-28.0); ABG OXYGEN SATURATION 91.9 % (95.0-99.0); ABG PCO2 43 mmHg (35-48)
[2017-08-17] MEDS ORDERED: MEROPENEM 1GM IVPB PREMIXED 1 GM IV SCH (15:45)
[2017-08-17] MEDS ORDERED: LINEZOLID 600 MG/ISO-OSM 300 ML IV SCH (15:45)
[2017-08-17] MEDS: HEPARIN 25000 UNITS/250 ML D5W 250 ML IV SCH (16:14)
[2017-08-17] MEDS: MEROPENEM 1 GM VIAL IVP SCH (17:28)
[2017-08-17] MEDS: WATER FOR INJECTION,STERILE 5 ML VIAL INJ SCH (17:28)
[2017-08-17] MEDS: ATORVASTATIN CALCIUM 40 MG TABLET PO SCH (21:52)
[2017-08-18] VITALS (24 sets, daily range): BP systolic 95–141; BP diastolic 53–75
[2017-08-18] MEDS: IPRATROPIUM/ALBUTEROL SULFATE 3 ML SOLUTION IH SCH ×4 (00:26→18:39)
[2017-08-18] MEDS: METOPROLOL TARTRATE 1 MG/ML 5ML VIAL IV PRN ×2 (00:31→02:10)
[2017-08-18] MEDS ORDERED: FUROSEMIDE 10 MG/ML 10ML VIAL ONE (00:53)
[2017-08-18] MEDS: ACETAMINOPHEN ELIXIR 650 MG/20.3 ML UDCUP PEG PRN ×3 (01:06→16:53)
[2017-08-18] MEDS: HEPARIN 25000 UNITS/250 ML D5W 250 ML IV SCH ×2 (03:47→16:05)
[2017-08-18] MEDS: ALBUMIN (HUMAN) 5% 250 ML IV SCH (05:35)
[2017-08-18 05:40] LABS: BASOPHILS % (AUTO) 0.4 % (0.0-5.0); EOSINOPHILS % (AUTO) 2.5 % (0.0-8.0); HEMATOCRIT 26.9 % (42-54); LYMPHOCYTES % (AUTO) 10.1 % (21.0-51.0); MEAN CORPUSCULAR HEMOGLOBIN 31.1 pg (27.0-33.0); MEAN CORPUSCULAR HGB CONC 35.1 g/dL (32.0-36.0); MEAN CORPUSCULAR VOLUME 88.5 fL (79-99); MONOCYTES % (AUTO) 12.2 % (3.0-13.0); NEUTROPHILS % (AUTO) 74.8 % (40.0-77.0); NUCLEATED RED BLOOD CELLS 0.1 % (0.0-0.19); PLATELET COUNT (AUTO) 204 K/uL (130-400); RED BLOOD CELL COUNT(AUTO) 3.04 MIL/uL (4.50-6.20)
[2017-08-18 05:55] LABS: ALBUMIN 1.8 g/dL (3.5-5.0); BILIRUBIN,TOTAL 0.6 mg/dL (0.2-1.0); CREATININE 5.9 mg/dL (0.5-1.5); POTASSIUM 4.3 mmol/L (3.5-5.1); TOTAL PROTEIN, SERUM 5.9 g/dL (6.0-8.3)
[2017-08-18] MEDS: MIDAZOLAM 100MG-0.9% NS 100ML 100 ML IV PRN (06:21)
[2017-08-18] MEDS: INSULIN HUMULIN R 100 UNIT/ML 3ML SQ SCH ×3 (06:23→19:17)
[2017-08-18] MEDS ORDERED: DIGOXIN 250 MCG/ML 2ML AMP ONE ×2 (06:51→13:56)
[2017-08-18] MEDS: LEVOTHYROXINE 75 MCG TABLET PO SCH (07:00)
[2017-08-18] MEDS: LINEZOLID 600 MG/ISO-OSM 300 ML IV SCH ×2 (07:19→18:17)
[2017-08-18 07:28] LABS: ABG BASE EXCESS -0.5 mmol/L (-2.0-3.0); ABG OXYGEN SATURATION 92.8 % (95.0-99.0); ABG PCO2 50 mmHg (35-48)
[2017-08-18] MEDS: FENTANYL 2500MCG+NS 250ML 250 ML IV PRN (07:47)
[2017-08-18] MEDS ORDERED: CALCIUM GLUCONATE 1 GM in SODIUM CHLORIDE 0.9% 50 ML IV SCH (08:00)
[2017-08-18 08:58] LABS: MAGNESIUM 2.8 mg/dL (1.80-2.40); PHOSPHORUS 6.3 mg/dL (2.5-4.9)
[2017-08-18] MEDS ORDERED: AMIODARONE HCL 200 MG TABLET PO ONE (09:12)
[2017-08-18] MEDS: FAMOTIDINE 20MG TAB 20 MG TAB PO SCH (09:14)
[2017-08-18] MEDS: METOCLOPRAMIDE 10 MG/2 ML VIAL IV SCH ×3 (09:14→23:12)
[2017-08-18] MEDS: ASPIRIN 81MG TAB.CHEW PO SCH (09:15)
[2017-08-18] MEDS: LACTOBACILLUS RHAMNOSUS GG 1 EACH CAP.SPRINK PO SCH (09:15)
[2017-08-18] MEDS: AMIODARONE HCL 200 MG TABLET PO SCH ×2 (10:00→20:14)
[2017-08-18] MEDS ORDERED: COMPOUND IV MISC 1 EACH IVSOLN MISC PRN (11:45)
[2017-08-18] MEDS: IRON SUCROSE COMPLEX 100 MG in SODIUM CHLORIDE 0.9% 50 ML IV SCH (14:14)
[2017-08-18] MEDS: DIGOXIN 250 MCG/ML 2ML AMP IV SCH ×2 (16:30→23:12)
[2017-08-18] MEDS: WATER FOR INJECTION,STERILE 5 ML VIAL INJ SCH (16:53)
[2017-08-18] MEDS: MEROPENEM 1 GM VIAL IVP SCH (16:53)
[2017-08-18] MEDS ORDERED: DEXAMETHASONE SOD PHOSPHATE 4 MG/ML 1ML VIAL IVP SCH (18:00)
[2017-08-18] MEDS: FUROSEMIDE 100 MG in SODIUM CHLORIDE 0.9% 90 ML IV SCH (18:17)
[2017-08-18] MEDS: METOPROLOL TARTRATE 25 MG TAB PO SCH (20:13)
[2017-08-18] MEDS: ATORVASTATIN CALCIUM 40 MG TABLET PO SCH (20:13)
[2017-08-19] VITALS (28 sets, daily range): BP systolic 106–133; BP diastolic 55–74
[2017-08-19] MEDS: INSULIN HUMULIN R 100 UNIT/ML 3ML SQ SCH ×4 (00:10→17:05)
[2017-08-19] MEDS: IPRATROPIUM/ALBUTEROL SULFATE 3 ML SOLUTION IH SCH ×5 (00:46→23:40)
[2017-08-19] MEDS: MIDAZOLAM 100MG-0.9% NS 100ML 100 ML IV PRN (03:21)
[2017-08-19] MEDS: FENTANYL 2500MCG+NS 250ML 250 ML IV PRN ×2 (03:22→21:56)
[2017-08-19] MEDS: DIGOXIN 250 MCG/ML 2ML AMP IV SCH (04:13)
[2017-08-19 04:14] LABS: HEMATOCRIT 28.3 % (42-54); MEAN CORPUSCULAR HEMOGLOBIN 29.3 pg (27.0-33.0); MEAN CORPUSCULAR HGB CONC 33.4 g/dL (32.0-36.0); MEAN CORPUSCULAR VOLUME 87.8 fL (79-99); NUCLEATED RED BLOOD CELLS 0.1 % (0.0-0.19); PLATELET COUNT (AUTO) 217 K/uL (130-400); RED BLOOD CELL COUNT(AUTO) 3.22 MIL/uL (4.50-6.20); RED CELL DISTRIBUTION WIDTH 13.6 % (11.0-15.5); WHITE BLOOD COUNT (AUTO) 14.5 K/uL (4.8-10.8)
[2017-08-19 04:29] LABS: CREATININE 5.8 mg/dL (0.5-1.5); MAGNESIUM 2.7 mg/dL (1.80-2.40); PHOSPHORUS 5.8 mg/dL (2.5-4.9); POTASSIUM 4.3 mmol/L (3.5-5.1)
[2017-08-19] MEDS: LINEZOLID 600 MG/ISO-OSM 300 ML IV SCH ×2 (05:03→17:06)
[2017-08-19] MEDS: HEPARIN 25000 UNITS/250 ML D5W 250 ML IV SCH (05:03)
[2017-08-19] MEDS: LEVOTHYROXINE 75 MCG TABLET PO SCH (05:36)
[2017-08-19] MEDS: METOCLOPRAMIDE 10 MG/2 ML VIAL IV SCH ×3 (06:02→23:18)
[2017-08-19 09:03] LABS: ABG BASE EXCESS 1.3 mmol/L (-2.0-3.0); ABG HCO3 27.1 mmol/L (21.0-28.0); ABG OXYGEN SATURATION 96.5 % (95.0-99.0); ABG PCO2 47 mmHg (35-48)
[2017-08-19] MEDS: ENOXAPARIN SODIUM 40 MG/0.4 ML SYRINGE SQ SCH (10:13)
[2017-08-19] MEDS: METOPROLOL TARTRATE 25 MG TAB PO SCH ×2 (10:14→20:41)
[2017-08-19] MEDS: ASPIRIN 81MG TAB.CHEW PO SCH (10:14)
[2017-08-19] MEDS: FAMOTIDINE 20MG TAB 20 MG TAB PO SCH (10:14)
[2017-08-19] MEDS: AMIODARONE HCL 200 MG TABLET PO SCH ×2 (10:14→20:40)
[2017-08-19] MEDS: LACTOBACILLUS RHAMNOSUS GG 1 EACH CAP.SPRINK PO SCH (10:26)
[2017-08-19] MEDS: IRON SUCROSE COMPLEX 100 MG in SODIUM CHLORIDE 0.9% 50 ML IV SCH (12:00)
[2017-08-19] MEDS: MEROPENEM 1 GM VIAL IVP SCH (17:04)
[2017-08-19] MEDS: WATER FOR INJECTION,STERILE 5 ML VIAL INJ SCH (17:06)
[2017-08-19] MEDS: FUROSEMIDE 100 MG in SODIUM CHLORIDE 0.9% 90 ML IV SCH (18:09)
[2017-08-19] MEDS: ATORVASTATIN CALCIUM 40 MG TABLET PO SCH (20:40)
[2017-08-20] VITALS (25 sets, daily range): BP systolic 106–149; BP diastolic 60–84
[2017-08-20] MEDS: INSULIN HUMULIN R 100 UNIT/ML 3ML SQ SCH ×4 (00:24→18:19)
[2017-08-20 05:24] LABS: HEMATOCRIT 26.4 % (42-54); MEAN CORPUSCULAR HEMOGLOBIN 30.4 pg (27.0-33.0); MEAN CORPUSCULAR HGB CONC 34.4 g/dL (32.0-36.0); MEAN CORPUSCULAR VOLUME 88.3 fL (79-99); PLATELET COUNT (AUTO) 221 K/uL (130-400); RED BLOOD CELL COUNT(AUTO) 2.99 MIL/uL (4.50-6.20); WHITE BLOOD COUNT (AUTO) 15.7 K/uL (4.8-10.8)
[2017-08-20 05:31] LABS: CREATININE 6.4 mg/dL (0.5-1.5); POTASSIUM 4.3 mmol/L (3.5-5.1)
[2017-08-20 05:44] LABS: BAND NEUTROPHILS % (MANUAL) 5 % (0-2); EOSINOPHILS % (MANUAL) 2 % (1-6); LYMPHOCYTES % (MANUAL) 6 % (22-44); METAMYELOCYTES % 1 % (0-0); MONOCYTES % (MANUAL) 10 % (2-9); SEGMENTED NEUTROPHILS % 76 % (40-70)
[2017-08-20 05:45] LABS: MAN.DIFF COMMENT-IMPRESSION MANUAL DIFFERENTIAL; PLATELET MORPHOLOGY COMMENT ADEQUATE
[2017-08-20] MEDS: LINEZOLID 600 MG/ISO-OSM 300 ML IV SCH ×2 (06:17→17:42)
[2017-08-20] MEDS: LEVOTHYROXINE 75 MCG TABLET PO SCH (06:22)
[2017-08-20] MEDS: METOCLOPRAMIDE 10 MG/2 ML VIAL IV SCH ×3 (06:23→22:39)
[2017-08-20] MEDS: IPRATROPIUM/ALBUTEROL SULFATE 3 ML SOLUTION IH SCH ×4 (06:42→23:38)
[2017-08-20] MEDS: AMIODARONE HCL 200 MG TABLET PO SCH ×2 (09:14→21:34)
[2017-08-20] MEDS: ENOXAPARIN SODIUM 40 MG/0.4 ML SYRINGE SQ SCH (09:14)
[2017-08-20] MEDS: METOPROLOL TARTRATE 25 MG TAB PO SCH ×2 (09:14→21:34)
[2017-08-20] MEDS: FAMOTIDINE 20MG TAB 20 MG TAB PO SCH (09:14)
[2017-08-20] MEDS: ASPIRIN 81MG TAB.CHEW PO SCH (09:14)
[2017-08-20] MEDS: INSULIN DETEMIR 10ML 100 UNIT/ML 10ML SQ SCH (10:42)
[2017-08-20] MEDS: IRON SUCROSE COMPLEX 100 MG in SODIUM CHLORIDE 0.9% 50 ML IV SCH (12:10)
[2017-08-20] MEDS: LACTOBACILLUS RHAMNOSUS GG 1 EACH CAP.SPRINK PO SCH (12:12)
[2017-08-20] MEDS ORDERED: FUROSEMIDE 10 MG/ML 4ML VIAL IV SCH (12:45)
[2017-08-20] MEDS: MEROPENEM 1 GM VIAL IVP SCH (16:05)
[2017-08-20] MEDS: FUROSEMIDE 100 MG in SODIUM CHLORIDE 0.9% 90 ML IV SCH (16:06)
[2017-08-20] MEDS: WATER FOR INJECTION,STERILE 5 ML VIAL INJ SCH (16:29)
[2017-08-20] MEDS ORDERED: DILTIAZEM 125MG+100 ML NS 125 ML IV STA (17:26)
[2017-08-20] MEDS ORDERED: HEPARIN 25000 UNITS/250 ML D5W 250 ML IV PRN (19:15)
[2017-08-20 20:53] LABS: INR 1.02 (0.85-1.15); PARTIAL THROMBOPLASTIN TIME 32.9 SEC (26.3-35.5); PROTHROMBIN TIME 10.7 SEC (9.6-11.6)
[2017-08-20] MEDS: ATORVASTATIN CALCIUM 40 MG TABLET PO SCH (21:34)
[2017-08-20] MEDS: ACETAMINOPHEN 325 MG TAB PO PRN (23:26)
[2017-08-21] VITALS (24 sets, daily range): BP systolic 102–134; BP diastolic 54–78
[2017-08-21] MEDS: INSULIN HUMULIN R 100 UNIT/ML 3ML SQ SCH ×8 (00:09→23:53)
[2017-08-21] MEDS: FENTANYL 2500MCG+NS 250ML 250 ML IV PRN (03:41)
[2017-08-21] MEDS: FUROSEMIDE 100 MG in SODIUM CHLORIDE 0.9% 90 ML IV SCH ×2 (04:44→23:37)
[2017-08-21 04:52] LABS: BASOPHILS % (AUTO) 0.3 % (0.0-5.0); EOSINOPHILS % (AUTO) 1.6 % (0.0-8.0); HEMATOCRIT 27.7 % (42-54); LYMPHOCYTES % (AUTO) 5.9 % (21.0-51.0); MEAN CORPUSCULAR HEMOGLOBIN 29.9 pg (27.0-33.0); MEAN CORPUSCULAR HGB CONC 34.3 g/dL (32.0-36.0); MEAN CORPUSCULAR VOLUME 87.3 fL (79-99); MONOCYTES % (AUTO) 8.9 % (3.0-13.0); NEUTROPHILS % (AUTO) 83.3 % (40.0-77.0); NUCLEATED RED BLOOD CELLS 0.1 % (0.0-0.19); PLATELET COUNT (AUTO) 281 K/uL (130-400); RED BLOOD CELL COUNT(AUTO) 3.17 MIL/uL (4.50-6.20); RED CELL DISTRIBUTION WIDTH 13.8 % (11.0-15.5); WHITE BLOOD COUNT (AUTO) 17.4 K/uL (4.8-10.8)
[2017-08-21] MEDS: LINEZOLID 600 MG/ISO-OSM 300 ML IV SCH ×2 (05:05→17:44)
[2017-08-21 05:16] LABS: ALBUMIN 1.9 g/dL (3.5-5.0); BILIRUBIN,TOTAL 0.6 mg/dL (0.2-1.0); CREATININE 5.9 mg/dL (0.5-1.5); PHOSPHORUS 6.4 mg/dL (2.5-4.9); TOTAL PROTEIN, SERUM 6.7 g/dL (6.0-8.3)
[2017-08-21 05:25] LABS: INR 1.05 (0.85-1.15); PARTIAL THROMBOPLASTIN TIME 69.5 SEC (26.3-35.5)
[2017-08-21] MEDS: INSULIN DETEMIR 10ML 100 UNIT/ML 10ML SQ SCH (06:22)
[2017-08-21] MEDS: METOCLOPRAMIDE 10 MG/2 ML VIAL IV SCH ×3 (06:22→22:48)
[2017-08-21] MEDS: LEVOTHYROXINE 75 MCG TABLET PO SCH (06:22)
[2017-08-21] MEDS: IPRATROPIUM/ALBUTEROL SULFATE 3 ML SOLUTION IH SCH ×4 (06:46→23:45)
[2017-08-21] MEDS ORDERED: INSULIN DETEMIR 10ML 100 UNIT/ML 10ML SQ SCH (07:30)
[2017-08-21] MEDS: LACTOBACILLUS RHAMNOSUS GG 1 EACH CAP.SPRINK PO SCH (08:58)
[2017-08-21] MEDS: METOPROLOL TARTRATE 25 MG TAB PO SCH ×2 (08:59→20:44)
[2017-08-21] MEDS: AMIODARONE HCL 200 MG TABLET PO SCH ×2 (08:59→20:44)
[2017-08-21] MEDS: FAMOTIDINE 20MG TAB 20 MG TAB PO SCH (08:59)
[2017-08-21] MEDS: ASPIRIN 81MG TAB.CHEW PO SCH (08:59)
[2017-08-21 09:12] LABS: HEMATOCRIT 26.6 % (42-54)
[2017-08-21 09:44] LABS: HEMOGLOBIN A1C 8.8 % (4.0-6.0)
[2017-08-21 09:58] LABS: FERRITIN 2575 ng/mL (30-400); IRON, SERUM 30 mcg/dL (65-175)
[2017-08-21] MEDS: IRON SUCROSE COMPLEX 100 MG in SODIUM CHLORIDE 0.9% 50 ML IV SCH (10:11)
[2017-08-21] MEDS ORDERED: LIDOCAINE HCL 1% 20 ML VIAL ONE (12:36)
[2017-08-21] MEDS ORDERED: HEPARIN SODIUM 5000UNIT/ML 1ML VIAL IJ PRN (13:45)
[2017-08-21] MEDS: WATER FOR INJECTION,STERILE 5 ML VIAL INJ SCH (16:52)
[2017-08-21] MEDS: MEROPENEM 1 GM VIAL IVP SCH (16:52)
[2017-08-21] MEDS: ATORVASTATIN CALCIUM 40 MG TABLET PO SCH (20:44)
[2017-08-22] VITALS (24 sets, daily range): BP systolic 107–150; BP diastolic 61–82
[2017-08-22 03:28] LABS: HEMATOCRIT 25.8 % (42-54); MEAN CORPUSCULAR HGB CONC 33.9 g/dL (32.0-36.0); MEAN CORPUSCULAR VOLUME 88.6 fL (79-99); PLATELET COUNT (AUTO) 275 K/uL (130-400); RED BLOOD CELL COUNT(AUTO) 2.91 MIL/uL (4.50-6.20); RED CELL DISTRIBUTION WIDTH 13.7 % (11.0-15.5); WHITE BLOOD COUNT (AUTO) 20.1 K/uL (4.8-10.8)
[2017-08-22 03:43] LABS: MAGNESIUM 2.6 mg/dL (1.80-2.40); PHOSPHORUS 7.4 mg/dL (2.5-4.9)
[2017-08-22 03:51] LABS: CREATININE 5.3 mg/dL (0.5-1.5); POTASSIUM 4.3 mmol/L (3.5-5.1)
[2017-08-22] MEDS: LINEZOLID 600 MG/ISO-OSM 300 ML IV SCH ×2 (05:12→17:02)
[2017-08-22 05:18] LABS: HEPATITIS Bs ANTIGEN SCREEN P Negative (Negative)
[2017-08-22] MEDS: LEVOTHYROXINE 75 MCG TABLET PO SCH (05:34)
[2017-08-22] MEDS: INSULIN HUMULIN R 100 UNIT/ML 3ML SQ SCH ×4 (06:12→23:51)
[2017-08-22] MEDS: IPRATROPIUM/ALBUTEROL SULFATE 3 ML SOLUTION IH SCH ×3 (06:57→17:52)
[2017-08-22] MEDS: INSULIN DETEMIR 10ML 100 UNIT/ML 10ML SQ SCH (07:16)
[2017-08-22] MEDS ORDERED: INSULIN DETEMIR 10ML 100 UNIT/ML 10ML SQ SCH (07:30)
[2017-08-22] MEDS: LACTOBACILLUS RHAMNOSUS GG 1 EACH CAP.SPRINK PO SCH (08:23)
[2017-08-22] MEDS: FAMOTIDINE 20MG TAB 20 MG TAB PO SCH (08:23)
[2017-08-22] MEDS: ASPIRIN 81MG TAB.CHEW PO SCH (08:23)
[2017-08-22] MEDS: METOPROLOL TARTRATE 25 MG TAB PO SCH ×2 (08:23→21:27)
[2017-08-22] MEDS: AMIODARONE HCL 200 MG TABLET PO SCH ×2 (08:23→21:27)
[2017-08-22] MEDS: IRON SUCROSE COMPLEX 100 MG in SODIUM CHLORIDE 0.9% 50 ML IV SCH (08:29)
[2017-08-22] MEDS: FUROSEMIDE 100 MG in SODIUM CHLORIDE 0.9% 90 ML IV SCH (16:41)
[2017-08-22] MEDS: FLUCONAZOLE 200 MG/NS 100 ML 100 ML IV SCH (17:01)
[2017-08-22] MEDS: WATER FOR INJECTION,STERILE 5 ML VIAL INJ SCH (17:01)
[2017-08-22] MEDS: MEROPENEM 1 GM VIAL IVP SCH (17:01)
[2017-08-22] MEDS: ATORVASTATIN CALCIUM 40 MG TABLET PO SCH (21:27)
[2017-08-23] VITALS (25 sets, daily range): BP systolic 122–168; BP diastolic 65–88
[2017-08-23] MEDS: IPRATROPIUM/ALBUTEROL SULFATE 3 ML SOLUTION IH SCH ×4 (00:32→18:26)
[2017-08-23 03:46] LABS: MEAN CORPUSCULAR HEMOGLOBIN 29.5 pg (27.0-33.0); MEAN CORPUSCULAR HGB CONC 33.7 g/dL (32.0-36.0); MEAN CORPUSCULAR VOLUME 87.5 fL (79-99); NUCLEATED RED BLOOD CELLS 0.1 % (0.0-0.19); PLATELET COUNT (AUTO) 293 K/uL (130-400); RED BLOOD CELL COUNT(AUTO) 3.09 MIL/uL (4.50-6.20); RED CELL DISTRIBUTION WIDTH 13.9 % (11.0-15.5)
[2017-08-23 03:57] LABS: CREATININE 4.5 mg/dL (0.5-1.5); MAGNESIUM 2.5 mg/dL (1.80-2.40); PHOSPHORUS 6.9 mg/dL (2.5-4.9); POTASSIUM 4.1 mmol/L (3.5-5.1)
[2017-08-23] MEDS: LEVOTHYROXINE 75 MCG TABLET PO SCH (06:22)
[2017-08-23] MEDS: LINEZOLID 600 MG/ISO-OSM 300 ML IV SCH ×2 (06:22→17:05)
[2017-08-23] MEDS: INSULIN HUMULIN R 100 UNIT/ML 3ML SQ SCH ×3 (06:29→18:04)
[2017-08-23] MEDS: INSULIN DETEMIR 10ML 100 UNIT/ML 10ML SQ SCH ×2 (06:51→08:37)
[2017-08-23] MEDS: LACTOBACILLUS RHAMNOSUS GG 1 EACH CAP.SPRINK PO SCH (08:35)
[2017-08-23] MEDS: AMIODARONE HCL 200 MG TABLET PO SCH ×2 (08:35→20:59)
[2017-08-23] MEDS: FAMOTIDINE 20MG TAB 20 MG TAB PO SCH (08:35)
[2017-08-23] MEDS: ASPIRIN 81MG TAB.CHEW PO SCH (08:35)
[2017-08-23] MEDS: IRON SUCROSE COMPLEX 100 MG in SODIUM CHLORIDE 0.9% 50 ML IV SCH (08:52)
[2017-08-23] MEDS: FLUCONAZOLE 200 MG/NS 100 ML 100 ML IV SCH (11:50)
[2017-08-23] MEDS: MEROPENEM 1 GM VIAL IVP SCH (16:13)
[2017-08-23] MEDS: WATER FOR INJECTION,STERILE 5 ML VIAL INJ SCH (16:13)
[2017-08-23] MEDS ORDERED: SODIUM CHLORIDE 0.9% 1000ML 1,000 ML IV ONE (16:18)
[2017-08-23 16:52] LABS: ABG BASE EXCESS 2.7 mmol/L (-2.0-3.0); ABG HCO3 25.8 mmol/L (21.0-28.0); ABG OXYGEN SATURATION 98.3 % (95.0-99.0); ABG PCO2 35 mmHg (35-48)
[2017-08-23] MEDS: ATORVASTATIN CALCIUM 40 MG TABLET PO SCH (20:59)
[2017-08-24] VITALS (23 sets, daily range): BP systolic 122–154; BP diastolic 65–100
[2017-08-24] MEDS: ACETAMINOPHEN ELIXIR 650 MG/20.3 ML UDCUP PEG PRN ×3 (00:12→23:16)
[2017-08-24] MEDS: INSULIN HUMULIN R 100 UNIT/ML 3ML SQ SCH ×4 (00:15→18:53)
[2017-08-24] MEDS: IPRATROPIUM/ALBUTEROL SULFATE 3 ML SOLUTION IH SCH ×5 (01:27→23:53)
[2017-08-24 04:43] LABS: HEMATOCRIT 30.2 % (42-54); MEAN CORPUSCULAR HEMOGLOBIN 29.1 pg (27.0-33.0); MEAN CORPUSCULAR HGB CONC 32.9 g/dL (32.0-36.0); MEAN CORPUSCULAR VOLUME 88.2 fL (79-99); PLATELET COUNT (AUTO) 349 K/uL (130-400); RED BLOOD CELL COUNT(AUTO) 3.43 MIL/uL (4.50-6.20); RED CELL DISTRIBUTION WIDTH 14.1 % (11.0-15.5); WHITE BLOOD COUNT (AUTO) 19.2 K/uL (4.8-10.8)
[2017-08-24 04:56] LABS: CREATININE 5.1 mg/dL (0.5-1.5); POTASSIUM 4.2 mmol/L (3.5-5.1)
[2017-08-24 05:33] LABS: LYMPHOCYTES % (MANUAL) 8 % (22-44); MAN.DIFF COMMENT-IMPRESSION MANUAL DIFFERENTIAL; MONOCYTES % (MANUAL) 12 % (2-9); SEGMENTED NEUTROPHILS % 80 % (40-70)
[2017-08-24 05:34] LABS: PLATELET MORPHOLOGY COMMENT ADEQUATE
[2017-08-24] MEDS: LINEZOLID 600 MG/ISO-OSM 300 ML IV SCH ×2 (06:06→17:04)
[2017-08-24] MEDS: LEVOTHYROXINE 75 MCG TABLET PO SCH (06:07)
[2017-08-24] MEDS: INSULIN DETEMIR 10ML 100 UNIT/ML 10ML SQ SCH (06:12)
[2017-08-24] MEDS: IRON SUCROSE COMPLEX 100 MG in SODIUM CHLORIDE 0.9% 50 ML IV SCH (08:52)
[2017-08-24] MEDS: LACTOBACILLUS RHAMNOSUS GG 1 EACH CAP.SPRINK PO SCH (08:53)
[2017-08-24] MEDS: FAMOTIDINE 20MG TAB 20 MG TAB PO SCH (08:53)
[2017-08-24] MEDS: AMIODARONE HCL 200 MG TABLET PO SCH ×2 (08:53→21:26)
[2017-08-24] MEDS: ASPIRIN 81MG TAB.CHEW PO SCH (08:53)
[2017-08-24] MEDS: ENOXAPARIN SODIUM 40 MG/0.4 ML SYRINGE SQ SCH (08:53)
[2017-08-24] MEDS: INSULIN GLARGINE 100 UNITS/ML 10 ML VIAL SQ SCH (09:15)
[2017-08-24] MEDS: FLUCONAZOLE 200 MG/NS 100 ML 100 ML IV SCH (11:26)
[2017-08-24] MEDS: WATER FOR INJECTION,STERILE 5 ML VIAL INJ SCH (16:31)
[2017-08-24] MEDS: MEROPENEM 1 GM VIAL IVP SCH (16:31)
[2017-08-24] MEDS: ATORVASTATIN CALCIUM 40 MG TABLET PO SCH (21:26)
[2017-08-25] VITALS (28 sets, daily range): BP systolic 100–159; BP diastolic 51–89
[2017-08-25] MEDS: INSULIN HUMULIN R 100 UNIT/ML 3ML SQ SCH ×8 (00:23→20:51)
[2017-08-25 04:18] LABS: CREATININE 7.1 mg/dL (0.5-1.5); MAGNESIUM 3.2 mg/dL (1.80-2.40); PHOSPHORUS 11.3 mg/dL (2.5-4.9); POTASSIUM 4.7 mmol/L (3.5-5.1)
[2017-08-25 04:27] LABS: HEMATOCRIT 27.7 % (42-54); MEAN CORPUSCULAR HEMOGLOBIN 29.2 pg (27.0-33.0); MEAN CORPUSCULAR HGB CONC 33.2 g/dL (32.0-36.0); MEAN CORPUSCULAR VOLUME 87.8 fL (79-99); PLATELET COUNT (AUTO) 339 K/uL (130-400); RED BLOOD CELL COUNT(AUTO) 3.15 MIL/uL (4.50-6.20); RED CELL DISTRIBUTION WIDTH 14.2 % (11.0-15.5); WHITE BLOOD COUNT (AUTO) 17.1 K/uL (4.8-10.8)
[2017-08-25 05:33] LABS: BAND NEUTROPHILS % (MANUAL) 2 % (0-2); LYMPHOCYTES % (MANUAL) 4 % (22-44); MAN.DIFF COMMENT-IMPRESSION MANUAL DIFFERENTIAL; MONOCYTES % (MANUAL) 5 % (2-9); REACTIVE LYMPHOCYTES 1 % (0-0); SEGMENTED NEUTROPHILS % 88 % (40-70)
[2017-08-25 05:34] LABS: PLATELET MORPHOLOGY COMMENT ADEQUATE
[2017-08-25] MEDS: IPRATROPIUM/ALBUTEROL SULFATE 3 ML SOLUTION IH SCH ×3 (06:00→19:51)
[2017-08-25] MEDS: LEVOTHYROXINE 75 MCG TABLET PO SCH (06:14)
[2017-08-25] MEDS: LINEZOLID 600 MG/ISO-OSM 300 ML IV SCH ×2 (06:14→16:56)
[2017-08-25] MEDS: INSULIN GLARGINE 100 UNITS/ML 10 ML VIAL SQ SCH ×2 (06:42→07:30)
[2017-08-25] MEDS ORDERED: IPRATROPIUM 0.5 MG/2.5 ML INH IH ONE (07:17)
[2017-08-25] MEDS ORDERED: ALBUTEROL SULFATE 0.083% 2.5 MG/3 ML INH IH ONE (07:17)
[2017-08-25] MEDS ORDERED: INSULIN GLARGINE 100 UNITS/ML 10 ML VIAL SQ SCH (07:30)
[2017-08-25] MEDS: IRON SUCROSE COMPLEX 100 MG in SODIUM CHLORIDE 0.9% 50 ML IV SCH (08:02)
[2017-08-25] MEDS: LACTOBACILLUS RHAMNOSUS GG 1 EACH CAP.SPRINK PO SCH (08:03)
[2017-08-25] MEDS: AMIODARONE HCL 200 MG TABLET PO SCH ×2 (08:03→20:31)
[2017-08-25] MEDS: ENOXAPARIN SODIUM 40 MG/0.4 ML SYRINGE SQ SCH (08:03)
[2017-08-25] MEDS: ASPIRIN 81MG TAB.CHEW PO SCH (08:03)
[2017-08-25] MEDS: FAMOTIDINE 20MG TAB 20 MG TAB PO SCH (08:03)
[2017-08-25] MEDS: METOPROLOL TARTRATE 25 MG TAB PO SCH ×2 (10:18→20:32)
[2017-08-25] MEDS: FLUCONAZOLE 200 MG/NS 100 ML 100 ML IV SCH (12:27)
[2017-08-25] MEDS ORDERED: SODIUM CHLORIDE 0.9% 1000ML 1,000 ML IV ONE (16:40)
[2017-08-25] MEDS: MEROPENEM 1 GM VIAL IVP SCH (16:55)
[2017-08-25] MEDS: WATER FOR INJECTION,STERILE 5 ML VIAL INJ SCH (16:55)
[2017-08-25] MEDS: METOPROLOL TARTRATE 1 MG/ML 5ML VIAL IV PRN (17:22)
[2017-08-25] MEDS: ACETAMINOPHEN ELIXIR 650 MG/20.3 ML UDCUP PEG PRN (17:47)
[2017-08-25] MEDS: ATORVASTATIN CALCIUM 40 MG TABLET PO SCH (20:32)
[2017-08-26] VITALS (25 sets, daily range): BP systolic 96–129; BP diastolic 56–73
[2017-08-26] MEDS: IPRATROPIUM/ALBUTEROL SULFATE 3 ML SOLUTION IH SCH ×4 (00:01→19:41)
[2017-08-26] MEDS: INSULIN HUMULIN R 100 UNIT/ML 3ML SQ SCH ×4 (00:31→12:28)
[2017-08-26] MEDS: MIDAZOLAM 100MG-0.9% NS 100ML 100 ML IV PRN (02:26)
[2017-08-26 04:12] LABS: HEMATOCRIT 30.8 % (42-54); MEAN CORPUSCULAR HEMOGLOBIN 29.4 pg (27.0-33.0); MEAN CORPUSCULAR HGB CONC 33.4 g/dL (32.0-36.0); PLATELET COUNT (AUTO) 435 K/uL (130-400); RED CELL DISTRIBUTION WIDTH 13.9 % (11.0-15.5); WHITE BLOOD COUNT (AUTO) 16.9 K/uL (4.8-10.8)
[2017-08-26 04:24] LABS: ALBUMIN 2.4 g/dL (3.5-5.0); BILIRUBIN,TOTAL 0.5 mg/dL (0.2-1.0); CREATININE 6.7 mg/dL (0.5-1.5); POTASSIUM 4.4 mmol/L (3.5-5.1); TOTAL PROTEIN, SERUM 8.1 g/dL (6.0-8.3)
[2017-08-26] MEDS: LINEZOLID 600 MG/ISO-OSM 300 ML IV SCH ×2 (05:23→18:14)
[2017-08-26] MEDS: LEVOTHYROXINE 75 MCG TABLET PO SCH (05:39)
[2017-08-26] MEDS: INSULIN GLARGINE 100 UNITS/ML 10 ML VIAL SQ SCH (06:48)
[2017-08-26] MEDS: ASPIRIN 81MG TAB.CHEW PO SCH (08:03)
[2017-08-26] MEDS: AMIODARONE HCL 200 MG TABLET PO SCH ×2 (08:04→23:28)
[2017-08-26] MEDS: IRON SUCROSE COMPLEX 100 MG in SODIUM CHLORIDE 0.9% 50 ML IV SCH (08:04)
[2017-08-26] MEDS: METOPROLOL TARTRATE 25 MG TAB PO SCH ×3 (08:04→23:28)
[2017-08-26] MEDS: LACTOBACILLUS RHAMNOSUS GG 1 EACH CAP.SPRINK PO SCH (08:04)
[2017-08-26] MEDS: FAMOTIDINE 20MG TAB 20 MG TAB PO SCH (08:04)
[2017-08-26] MEDS ORDERED: INSULIN GLARGINE 100 UNITS/ML 10 ML VIAL SQ SCH (09:00)
[2017-08-26] MEDS: FLUCONAZOLE 200 MG/NS 100 ML 100 ML IV SCH (12:30)
[2017-08-26] MEDS: MEROPENEM 1 GM VIAL IVP SCH (16:15)
[2017-08-26] MEDS: WATER FOR INJECTION,STERILE 5 ML VIAL INJ SCH (16:16)
[2017-08-26] MEDS: ENOXAPARIN SODIUM 30 MG/0.3 ML SQ SCH (16:17)
[2017-08-26] MEDS ORDERED: INSULIN REGULAR, HUMAN 3ML 100 UNIT in SODIUM CHLORIDE 0.9% 99 ML IV PRN ×2 (18:30)
[2017-08-26] MEDS: INSULIN REGULAR, HUMAN 3ML 100 UNIT in SODIUM CHLORIDE 0.9% 99 ML IV PRN ×2 (21:09)
[2017-08-26] MEDS: ATORVASTATIN CALCIUM 40 MG TABLET PO SCH (23:28)
[2017-08-27] VITALS (24 sets, daily range): BP systolic 94–130; BP diastolic 48–78
[2017-08-27] MEDS: IPRATROPIUM/ALBUTEROL SULFATE 3 ML SOLUTION IH SCH ×4 (01:02→19:00)
[2017-08-27 03:59] LABS: HEMATOCRIT 27.4 % (42-54); MEAN CORPUSCULAR HEMOGLOBIN 29.3 pg (27.0-33.0); MEAN CORPUSCULAR HGB CONC 33.4 g/dL (32.0-36.0); MEAN CORPUSCULAR VOLUME 87.5 fL (79-99); PLATELET COUNT (AUTO) 397 K/uL (130-400); RED BLOOD CELL COUNT(AUTO) 3.13 MIL/uL (4.50-6.20); RED CELL DISTRIBUTION WIDTH 13.6 % (11.0-15.5); WHITE BLOOD COUNT (AUTO) 14.8 K/uL (4.8-10.8)
[2017-08-27 04:06] LABS: INR 1.07 (0.85-1.15); PARTIAL THROMBOPLASTIN TIME 29.9 SEC (26.3-35.5); PROTHROMBIN TIME 11.2 SEC (9.6-11.6)
[2017-08-27 04:10] LABS: ALBUMIN 2.3 g/dL (3.5-5.0); BILIRUBIN,TOTAL 0.4 mg/dL (0.2-1.0); POTASSIUM 4.7 mmol/L (3.5-5.1); TOTAL PROTEIN, SERUM 7.5 g/dL (6.0-8.3)
[2017-08-27 04:16] LABS: BAND NEUTROPHILS % (MANUAL) 1 % (0-2); BASOPHILS % (MANUAL) 1 % (0-2); EOSINOPHILS % (MANUAL) 2 % (1-6); LYMPHOCYTES % (MANUAL) 2 % (22-44); MONOCYTES % (MANUAL) 9 % (2-9); SEGMENTED NEUTROPHILS % 85 % (40-70)
[2017-08-27 04:17] LABS: MAN.DIFF COMMENT-IMPRESSION MANUAL DIFFERENTIAL; PLATELET MORPHOLOGY COMMENT INCREASED
[2017-08-27 04:19] LABS: CREATININE 9.1 mg/dL (0.5-1.5)
[2017-08-27] MEDS: LEVOTHYROXINE 75 MCG TABLET PO SCH (06:31)
[2017-08-27] MEDS: LINEZOLID 600 MG/ISO-OSM 300 ML IV SCH ×2 (06:32→18:13)
[2017-08-27] MEDS: INSULIN REGULAR, HUMAN 3ML 100 UNIT in SODIUM CHLORIDE 0.9% 99 ML IV PRN ×4 (06:38→20:11)
[2017-08-27] MEDS: IRON SUCROSE COMPLEX 100 MG in SODIUM CHLORIDE 0.9% 50 ML IV SCH (08:43)
[2017-08-27] MEDS: ENOXAPARIN SODIUM 30 MG/0.3 ML SQ SCH (08:43)
[2017-08-27] MEDS: ASPIRIN 81MG TAB.CHEW PO SCH (08:43)
[2017-08-27] MEDS: LACTOBACILLUS RHAMNOSUS GG 1 EACH CAP.SPRINK PO SCH (08:43)
[2017-08-27] MEDS: AMIODARONE HCL 200 MG TABLET PO SCH ×2 (08:43→21:19)
[2017-08-27] MEDS: FAMOTIDINE 20MG TAB 20 MG TAB PO SCH (08:44)
[2017-08-27] MEDS: METOPROLOL TARTRATE 25 MG TAB PO SCH ×3 (08:44→21:18)
[2017-08-27] MEDS: FLUCONAZOLE 200 MG/NS 100 ML 100 ML IV SCH (11:54)
[2017-08-27] MEDS ORDERED: LIDOCAINE HCL 1% MDV 50ML VIAL ONE (16:31)
[2017-08-27] MEDS: MEROPENEM 1 GM VIAL IVP SCH (16:31)
[2017-08-27] MEDS: WATER FOR INJECTION,STERILE 5 ML VIAL INJ SCH (16:37)
[2017-08-27] MEDS ORDERED: SODIUM CHLORIDE 0.9% 1000ML 1,000 ML IV ONE (20:55)
[2017-08-27] MEDS: ATORVASTATIN CALCIUM 40 MG TABLET PO SCH (21:17)
[2017-08-28] VITALS (20 sets, daily range): BP systolic 93–132; BP diastolic 54–83
[2017-08-28] MEDS: IPRATROPIUM/ALBUTEROL SULFATE 3 ML SOLUTION IH SCH ×5 (00:57→23:34)
[2017-08-28 04:09] LABS: HEMATOCRIT 29.3 % (42-54); MEAN CORPUSCULAR HEMOGLOBIN 29.4 pg (27.0-33.0); MEAN CORPUSCULAR HGB CONC 33.8 g/dL (32.0-36.0); PLATELET COUNT (AUTO) 380 K/uL (130-400); RED BLOOD CELL COUNT(AUTO) 3.37 MIL/uL (4.50-6.20); RED CELL DISTRIBUTION WIDTH 13.7 % (11.0-15.5); WHITE BLOOD COUNT (AUTO) 16.8 K/uL (4.8-10.8)
[2017-08-28 04:23] LABS: CREATININE 6.2 mg/dL (0.5-1.5); POTASSIUM 4.1 mmol/L (3.5-5.1)
[2017-08-28] MEDS: LINEZOLID 600 MG/ISO-OSM 300 ML IV SCH ×2 (06:03→17:50)
[2017-08-28] MEDS: LEVOTHYROXINE 75 MCG TABLET PO SCH (06:03)
[2017-08-28] MEDS: MIDAZOLAM 100MG-0.9% NS 100ML 100 ML IV PRN (08:03)
[2017-08-28] MEDS: FAMOTIDINE 20MG TAB 20 MG TAB PO SCH (08:17)
[2017-08-28] MEDS: ENOXAPARIN SODIUM 30 MG/0.3 ML SQ SCH (08:17)
[2017-08-28] MEDS: AMIODARONE HCL 200 MG TABLET PO SCH ×2 (08:17→19:59)
[2017-08-28] MEDS: ASPIRIN 81MG TAB.CHEW PO SCH (08:17)
[2017-08-28] MEDS: METOPROLOL TARTRATE 25 MG TAB PO SCH ×3 (08:17→19:59)
[2017-08-28] MEDS: LACTOBACILLUS RHAMNOSUS GG 1 EACH CAP.SPRINK PO SCH (08:18)
[2017-08-28] MEDS: IRON SUCROSE COMPLEX 100 MG in SODIUM CHLORIDE 0.9% 50 ML IV SCH (09:00)
[2017-08-28] MEDS ORDERED: PROPOFOL 1000 MG/100 ML IV PRN (09:15)
[2017-08-28] MEDS ORDERED: PROPOFOL 1000 MG/100 ML 100 ML IV PRN (09:30)
[2017-08-28] MEDS: FLUCONAZOLE 200 MG/NS 100 ML 100 ML IV SCH (11:14)
[2017-08-28] MEDS: MEROPENEM 1 GM VIAL IVP SCH (17:49)
[2017-08-28] MEDS: WATER FOR INJECTION,STERILE 5 ML VIAL INJ SCH (17:49)
[2017-08-28] MEDS: ATORVASTATIN CALCIUM 40 MG TABLET PO SCH (19:59)
[2017-08-28] MEDS: INSULIN REGULAR, HUMAN 3ML 100 UNIT in SODIUM CHLORIDE 0.9% 99 ML IV PRN ×2 (22:14)
[2017-08-29] VITALS (20 sets, daily range): BP systolic 88–192; BP diastolic 49–111
[2017-08-29 04:15] LABS: HEMATOCRIT 28.2 % (42-54); MEAN CORPUSCULAR HEMOGLOBIN 29.4 pg (27.0-33.0); MEAN CORPUSCULAR HGB CONC 34.1 g/dL (32.0-36.0); MEAN CORPUSCULAR VOLUME 86.1 fL (79-99); PLATELET COUNT (AUTO) 346 K/uL (130-400); RED BLOOD CELL COUNT(AUTO) 3.28 MIL/uL (4.50-6.20); WHITE BLOOD COUNT (AUTO) 17.2 K/uL (4.8-10.8)
[2017-08-29 05:24] LABS: CREATININE 5.7 mg/dL (0.5-1.5); POTASSIUM 4.6 mmol/L (3.5-5.1)
[2017-08-29] MEDS: LINEZOLID 600 MG/ISO-OSM 300 ML IV SCH ×2 (05:38→19:08)
[2017-08-29] MEDS: LEVOTHYROXINE 75 MCG TABLET PO SCH (05:45)
[2017-08-29] MEDS: IPRATROPIUM/ALBUTEROL SULFATE 3 ML SOLUTION IH SCH ×3 (06:23→18:31)
[2017-08-29 08:12] LABS: MEAN CORPUSCULAR HGB CONC 33.3 g/dL (32.0-36.0); PLATELET COUNT (AUTO) 325 K/uL (130-400); WHITE BLOOD COUNT (AUTO) 18.1 K/uL (4.8-10.8)
[2017-08-29 08:30] LABS: CREATININE 5.4 mg/dL (0.5-1.5); POTASSIUM 4.4 mmol/L (3.5-5.1)
[2017-08-29 08:46] LABS: BASOPHILS % (AUTO) 0.6 % (0.0-5.0); EOSINOPHILS % (AUTO) 1.3 % (0.0-8.0); HEMATOCRIT 30.3 % (42-54); LYMPHOCYTES % (AUTO) 5.4 % (21.0-51.0); MEAN CORPUSCULAR HEMOGLOBIN 29.4 pg (27.0-33.0); MEAN CORPUSCULAR VOLUME 88.3 fL (79-99); MONOCYTES % (AUTO) 7.9 % (3.0-13.0); NEUTROPHILS % (AUTO) 84.8 % (40.0-77.0); RED BLOOD CELL COUNT(AUTO) 3.44 MIL/uL (4.50-6.20); RED CELL DISTRIBUTION WIDTH 13.8 % (11.0-15.5)
[2017-08-29] MEDS: METOPROLOL TARTRATE 1 MG/ML 5ML VIAL IV PRN (09:13)
[2017-08-29] MEDS ORDERED: ALBUMIN (HUMAN) 25% 100 ML IV ONE (10:10)
[2017-08-29] MEDS ORDERED: ALBUMIN (HUMAN) 25% 100 ML IV PRN (10:30)
[2017-08-29] MEDS ORDERED: SODIUM CHLORIDE 0.9% 1000ML 1,000 ML IV PRN (10:30)
[2017-08-29] MEDS ORDERED: 0.9% SODIUM CHLORIDE 250 ML IV BAG IV PRN (10:30)
[2017-08-29] MEDS: AMIODARONE HCL 200 MG TABLET PO SCH ×2 (13:00→20:29)
[2017-08-29] MEDS: LACTOBACILLUS RHAMNOSUS GG 1 EACH CAP.SPRINK PO SCH (13:00)
[2017-08-29] MEDS: ASPIRIN 81MG TAB.CHEW PO SCH (13:00)
[2017-08-29] MEDS: METOPROLOL TARTRATE 25 MG TAB PO SCH ×3 (13:00→20:29)
[2017-08-29] MEDS: FAMOTIDINE 20MG TAB 20 MG TAB PO SCH (13:00)
[2017-08-29] MEDS: FLUCONAZOLE 200 MG/NS 100 ML 100 ML IV SCH (13:01)
[2017-08-29] MEDS: IRON SUCROSE COMPLEX 100 MG in SODIUM CHLORIDE 0.9% 50 ML IV SCH (13:01)
[2017-08-29] MEDS: ENOXAPARIN SODIUM 30 MG/0.3 ML SQ SCH (13:02)
[2017-08-29] MEDS: WATER FOR INJECTION,STERILE 5 ML VIAL INJ SCH (19:08)
[2017-08-29] MEDS: MEROPENEM 1 GM VIAL IVP SCH (19:08)
[2017-08-29] MEDS: ATORVASTATIN CALCIUM 40 MG TABLET PO SCH (20:28)
[2017-08-30] VITALS (17 sets, daily range): BP systolic 103–125; BP diastolic 55–90
[2017-08-30] MEDS: IPRATROPIUM/ALBUTEROL SULFATE 3 ML SOLUTION IH SCH ×5 (01:15→23:39)
[2017-08-30 03:59] LABS: HEMATOCRIT 24.4 % (42-54); MEAN CORPUSCULAR HEMOGLOBIN 30.6 pg (27.0-33.0); MEAN CORPUSCULAR VOLUME 87.5 fL (79-99); PLATELET COUNT (AUTO) 245 K/uL (130-400); RED BLOOD CELL COUNT(AUTO) 2.79 MIL/uL (4.50-6.20); RED CELL DISTRIBUTION WIDTH 13.4 % (11.0-15.5); WHITE BLOOD COUNT (AUTO) 14.9 K/uL (4.8-10.8)
[2017-08-30 04:06] LABS: INR 1.06 (0.85-1.15); PARTIAL THROMBOPLASTIN TIME 30.8 SEC (26.3-35.5); PROTHROMBIN TIME 11.1 SEC (9.6-11.6)
[2017-08-30 04:09] LABS: CREATININE 4.2 mg/dL (0.5-1.5); POTASSIUM 4.3 mmol/L (3.5-5.1)
[2017-08-30 04:26] LABS: BAND NEUTROPHILS % (MANUAL) 1 % (0-2); BASOPHILS % (MANUAL) 1 % (0-2); EOSINOPHILS % (MANUAL) 5 % (1-6); LYMPHOCYTES % (MANUAL) 10 % (22-44); MAN.DIFF COMMENT-IMPRESSION MANUAL DIFFERENTIAL; MONOCYTES % (MANUAL) 2 % (2-9); PLATELET MORPHOLOGY COMMENT ADEQUATE; SEGMENTED NEUTROPHILS % 81 % (40-70)
[2017-08-30] MEDS: LEVOTHYROXINE 75 MCG TABLET PO SCH (06:12)
[2017-08-30] MEDS: LINEZOLID 600 MG/ISO-OSM 300 ML IV SCH ×2 (06:12→17:57)
[2017-08-30] MEDS: FAMOTIDINE 20MG TAB 20 MG TAB PO SCH (09:15)
[2017-08-30] MEDS: ASPIRIN 81MG TAB.CHEW PO SCH (09:16)
[2017-08-30] MEDS: METOPROLOL TARTRATE 25 MG TAB PO SCH ×3 (09:16→21:17)
[2017-08-30] MEDS: AMIODARONE HCL 200 MG TABLET PO SCH ×2 (09:16→20:33)
[2017-08-30] MEDS: LACTOBACILLUS RHAMNOSUS GG 1 EACH CAP.SPRINK PO SCH (09:16)
[2017-08-30] MEDS: ENOXAPARIN SODIUM 30 MG/0.3 ML SQ SCH (09:17)
[2017-08-30] MEDS: IRON SUCROSE COMPLEX 100 MG in SODIUM CHLORIDE 0.9% 50 ML IV SCH (13:25)
[2017-08-30] MEDS: FLUCONAZOLE 200 MG/NS 100 ML 100 ML IV SCH (13:25)
[2017-08-30] MEDS: ACETAMINOPHEN ELIXIR 650 MG/20.3 ML UDCUP PEG PRN (13:56)
[2017-08-30] MEDS: MEROPENEM 1 GM VIAL IVP SCH (17:57)
[2017-08-30] MEDS: WATER FOR INJECTION,STERILE 5 ML VIAL INJ SCH (17:57)
[2017-08-30] MEDS: ATORVASTATIN CALCIUM 40 MG TABLET PO SCH (20:33)
[2017-08-30] MEDS: INSULIN REGULAR, HUMAN 3ML 100 UNIT in SODIUM CHLORIDE 0.9% 99 ML IV PRN ×2 (21:28)
[2017-08-30] MEDS: FENTANYL 2500MCG+NS 250ML 250 ML IV PRN (21:36)
[2017-08-31] VITALS (23 sets, daily range): BP systolic 109–150; BP diastolic 64–90
[2017-08-31 04:05] LABS: MEAN CORPUSCULAR HEMOGLOBIN 29.5 pg (27.0-33.0); MEAN CORPUSCULAR HGB CONC 33.3 g/dL (32.0-36.0); MEAN CORPUSCULAR VOLUME 88.5 fL (79-99); PLATELET COUNT (AUTO) 242 K/uL (130-400); RED BLOOD CELL COUNT(AUTO) 2.94 MIL/uL (4.50-6.20); RED CELL DISTRIBUTION WIDTH 13.9 % (11.0-15.5); WHITE BLOOD COUNT (AUTO) 15.7 K/uL (4.8-10.8)
[2017-08-31 04:18] LABS: CREATININE 4.6 mg/dL (0.5-1.5); POTASSIUM 4.4 mmol/L (3.5-5.1)
[2017-08-31] MEDS: LINEZOLID 600 MG/ISO-OSM 300 ML IV SCH ×2 (05:49→17:00)
[2017-08-31] MEDS: LEVOTHYROXINE 75 MCG TABLET PO SCH (05:49)
[2017-08-31] MEDS: IPRATROPIUM/ALBUTEROL SULFATE 3 ML SOLUTION IH SCH ×3 (06:55→18:41)
[2017-08-31] MEDS: ASPIRIN 81MG TAB.CHEW PO SCH (08:55)
[2017-08-31] MEDS: FAMOTIDINE 20MG TAB 20 MG TAB PO SCH (08:55)
[2017-08-31] MEDS: AMIODARONE HCL 200 MG TABLET PO SCH ×2 (08:55→21:29)
[2017-08-31] MEDS: ENOXAPARIN SODIUM 30 MG/0.3 ML SQ SCH (08:55)
[2017-08-31] MEDS: IRON SUCROSE COMPLEX 100 MG in SODIUM CHLORIDE 0.9% 50 ML IV SCH (08:55)
[2017-08-31] MEDS: METOPROLOL TARTRATE 25 MG TAB PO SCH ×3 (08:55→21:28)
[2017-08-31] MEDS: LACTOBACILLUS RHAMNOSUS GG 1 EACH CAP.SPRINK PO SCH (08:55)
[2017-08-31] MEDS: FLUCONAZOLE 200 MG/NS 100 ML 100 ML IV SCH (11:26)
[2017-08-31] MEDS: INSULIN REGULAR, HUMAN 3ML 100 UNIT in SODIUM CHLORIDE 0.9% 99 ML IV PRN ×2 (12:13)
[2017-08-31] MEDS: WATER FOR INJECTION,STERILE 5 ML VIAL INJ SCH (16:43)
[2017-08-31] MEDS: ATORVASTATIN CALCIUM 40 MG TABLET PO SCH (21:28)
[2017-09-01] VITALS (25 sets, daily range): BP systolic 102–138; BP diastolic 69–84
[2017-09-01 04:02] LABS: HEMATOCRIT 26.1 % (42-54); MEAN CORPUSCULAR HEMOGLOBIN 30.1 pg (27.0-33.0); MEAN CORPUSCULAR HGB CONC 34.5 g/dL (32.0-36.0); MEAN CORPUSCULAR VOLUME 87.3 fL (79-99); PLATELET COUNT (AUTO) 251 K/uL (130-400); RED BLOOD CELL COUNT(AUTO) 2.99 MIL/uL (4.50-6.20); RED CELL DISTRIBUTION WIDTH 13.7 % (11.0-15.5)
[2017-09-01 04:18] LABS: CREATININE 3.8 mg/dL (0.5-1.5); POTASSIUM 4.7 mmol/L (3.5-5.1)
[2017-09-01 04:27] LABS: BAND NEUTROPHILS % (MANUAL) 1 % (0-2); LYMPHOCYTES % (MANUAL) 2 % (22-44); MONOCYTES % (MANUAL) 7 % (2-9); SEGMENTED NEUTROPHILS % 90 % (40-70)
[2017-09-01 04:28] LABS: MAN.DIFF COMMENT-IMPRESSION MANUAL DIFFERENTIAL; PLATELET MORPHOLOGY COMMENT ADEQUATE
[2017-09-01] MEDS: IPRATROPIUM/ALBUTEROL SULFATE 3 ML SOLUTION IH SCH ×5 (06:20→23:21)
[2017-09-01] MEDS: ENOXAPARIN SODIUM 30 MG/0.3 ML SQ SCH (09:00)
[2017-09-01] MEDS: ASPIRIN 81MG TAB.CHEW PO SCH (09:00)
[2017-09-01] MEDS: FAMOTIDINE 20MG TAB 20 MG TAB PO SCH (09:28)
[2017-09-01] MEDS: LACTOBACILLUS RHAMNOSUS GG 1 EACH CAP.SPRINK PO SCH (09:28)
[2017-09-01] MEDS: AMIODARONE HCL 200 MG TABLET PO SCH ×2 (09:28→20:03)
[2017-09-01] MEDS: LEVOTHYROXINE 75 MCG TABLET PO SCH (09:28)
[2017-09-01] MEDS: IRON SUCROSE COMPLEX 100 MG in SODIUM CHLORIDE 0.9% 50 ML IV SCH (09:28)
[2017-09-01] MEDS: METOPROLOL TARTRATE 25 MG TAB PO SCH ×3 (09:29→20:03)
[2017-09-01] MEDS: FLUCONAZOLE 200 MG/NS 100 ML 100 ML IV SCH (11:54)
[2017-09-01] MEDS: MEROPENEM 500 MG VIAL IVP SCH ×2 (11:54→23:52)
[2017-09-01] MEDS: INSULIN REGULAR, HUMAN 3ML 100 UNIT in SODIUM CHLORIDE 0.9% 99 ML IV PRN ×2 (13:32)
[2017-09-01] MEDS ORDERED: MEROPENEM 1GM IVPB PREMIXED 1 GM IV SCH (17:00)
[2017-09-01] MEDS: LINEZOLID 600 MG/ISO-OSM 300 ML IV SCH (18:06)
[2017-09-01] MEDS: WATER FOR INJECTION,STERILE 5 ML VIAL INJ SCH (18:12)
[2017-09-01] MEDS: ACETAMINOPHEN ELIXIR 650 MG/20.3 ML UDCUP PEG PRN (19:51)
[2017-09-01] MEDS: ATORVASTATIN CALCIUM 40 MG TABLET PO SCH (20:03)
[2017-09-02] VITALS (22 sets, daily range): BP systolic 108–138; BP diastolic 72–88
[2017-09-02 03:56] LABS: HEMATOCRIT 26.7 % (42-54); MEAN CORPUSCULAR HEMOGLOBIN 30.3 pg (27.0-33.0); MEAN CORPUSCULAR HGB CONC 34.2 g/dL (32.0-36.0); MEAN CORPUSCULAR VOLUME 88.5 fL (79-99); PLATELET COUNT (AUTO) 241 K/uL (130-400); RED BLOOD CELL COUNT(AUTO) 3.02 MIL/uL (4.50-6.20); RED CELL DISTRIBUTION WIDTH 14.3 % (11.0-15.5); WHITE BLOOD COUNT (AUTO) 15.9 K/uL (4.8-10.8)
[2017-09-02 04:14] LABS: CREATININE 4.6 mg/dL (0.5-1.5); POTASSIUM 4.9 mmol/L (3.5-5.1)
[2017-09-02] MEDS: LINEZOLID 600 MG/ISO-OSM 300 ML IV SCH ×2 (05:09→19:58)
[2017-09-02] MEDS: LEVOTHYROXINE 75 MCG TABLET PO SCH (05:09)
[2017-09-02] MEDS: IPRATROPIUM/ALBUTEROL SULFATE 3 ML SOLUTION IH SCH ×3 (06:53→19:27)
[2017-09-02] MEDS: LACTOBACILLUS RHAMNOSUS GG 1 EACH CAP.SPRINK PO SCH (08:00)
[2017-09-02] MEDS: FAMOTIDINE 20MG TAB 20 MG TAB PO SCH (08:58)
[2017-09-02] MEDS: METOPROLOL TARTRATE 25 MG TAB PO SCH ×3 (08:58→21:31)
[2017-09-02] MEDS: ASPIRIN 81MG TAB.CHEW PO SCH ×2 (08:58→09:00)
[2017-09-02] MEDS: AMIODARONE HCL 200 MG TABLET PO SCH ×2 (08:58→21:31)
[2017-09-02] MEDS: ENOXAPARIN SODIUM 30 MG/0.3 ML SQ SCH (09:00)
[2017-09-02] MEDS: IRON SUCROSE COMPLEX 100 MG in SODIUM CHLORIDE 0.9% 50 ML IV SCH (09:05)
[2017-09-02] MEDS: FLUCONAZOLE 200 MG/NS 100 ML 100 ML IV SCH (11:36)
[2017-09-02] MEDS: MEROPENEM 500 MG VIAL IVP SCH ×2 (11:36→22:07)
[2017-09-02] MEDS ORDERED: MIDAZOLAM HCL 1 MG/ML 2ML VIAL ONE (12:15)
[2017-09-02] MEDS ORDERED: FENTANYL CITRATE PF 50 MCG/1 ML 2ML VIAL ONE (12:15)
[2017-09-02] MEDS: WATER FOR INJECTION,STERILE 5 ML VIAL INJ SCH (17:00)
[2017-09-02] MEDS: ATORVASTATIN CALCIUM 40 MG TABLET PO SCH (21:31)
[2017-09-02] MEDS: INSULIN REGULAR, HUMAN 3ML 100 UNIT in SODIUM CHLORIDE 0.9% 99 ML IV PRN ×2 (21:32)
[2017-09-03] VITALS (24 sets, daily range): BP systolic 93–169; BP diastolic 50–90
[2017-09-03] MEDS: IPRATROPIUM/ALBUTEROL SULFATE 3 ML SOLUTION IH SCH ×4 (00:51→18:43)
[2017-09-03 04:03] LABS: HEMATOCRIT 25.9 % (42-54); MEAN CORPUSCULAR HEMOGLOBIN 29.4 pg (27.0-33.0); MEAN CORPUSCULAR HGB CONC 33.5 g/dL (32.0-36.0); MEAN CORPUSCULAR VOLUME 87.9 fL (79-99); PLATELET COUNT (AUTO) 238 K/uL (130-400); RED BLOOD CELL COUNT(AUTO) 2.94 MIL/uL (4.50-6.20); RED CELL DISTRIBUTION WIDTH 14.4 % (11.0-15.5); WHITE BLOOD COUNT (AUTO) 19.3 K/uL (4.8-10.8)
[2017-09-03 04:21] LABS: CREATININE 5.2 mg/dL (0.5-1.5); POTASSIUM 5.2 mmol/L (3.5-5.1)
[2017-09-03] MEDS: LINEZOLID 600 MG/ISO-OSM 300 ML IV SCH ×2 (05:47→18:54)
[2017-09-03] MEDS: LEVOTHYROXINE 100 MCG VIAL IV SCH (06:01)
[2017-09-03] MEDS: LACTOBACILLUS RHAMNOSUS GG 1 EACH CAP.SPRINK PO SCH ×2 (08:00→09:00)
[2017-09-03] MEDS: IRON SUCROSE COMPLEX 100 MG in SODIUM CHLORIDE 0.9% 50 ML IV SCH (08:59)
[2017-09-03] MEDS: ENOXAPARIN SODIUM 30 MG/0.3 ML SQ SCH ×2 (08:59→09:00)
[2017-09-03] MEDS: ASPIRIN 81MG TAB.CHEW PO SCH ×2 (09:00→09:01)
[2017-09-03] MEDS: METOPROLOL TARTRATE 25 MG TAB PO SCH ×3 (09:01→21:17)
[2017-09-03] MEDS: AMIODARONE HCL 200 MG TABLET PO SCH ×2 (09:01→21:17)
[2017-09-03] MEDS: FAMOTIDINE 20MG TAB 20 MG TAB PO SCH (09:01)
[2017-09-03] MEDS: MEROPENEM 500 MG VIAL IVP SCH ×2 (09:59→22:19)
[2017-09-03 11:09] LABS: APPEARANCE,URINE Turbid (CLEAR); BILIRUBIN,URINE Negative (NEGATIVE); COLOR,URINE Yellow (YELLOW); GLUCOSE, URINE (UA) Negative (NEGATIVE); KETONES,URINE Negative (NEGATIVE); LEUKOCYTE ESTERASE ,URINE Negative (NEGATIVE); NITRATE,URINE Negative (NEGATIVE); OCCULT BLOOD,URINE Large (NEGATIVE); PROTEIN,URINE POS 1+ (NEGATIVE); UROBILINOGEN,URINE 0.2 mg/dL (0.2-1.0)
[2017-09-03 11:23] LABS: BACTERIA,URINE Few /HPF (None Seen); SQUAMOUS EPITHELIAL CELL,UR Rare /LPF (0-2); WBC,URINE 0-1 /HPF (0-1)
[2017-09-03] MEDS: FLUCONAZOLE 200 MG/NS 100 ML 100 ML IV SCH (12:27)
[2017-09-03] MEDS: WATER FOR INJECTION,STERILE 5 ML VIAL INJ SCH (16:12)
[2017-09-03 17:37] LABS: BASOPHILS % (AUTO) 0.7 % (0.0-5.0); HEMATOCRIT 25.9 % (42-54); LYMPHOCYTES % (AUTO) 5.5 % (21.0-51.0); MEAN CORPUSCULAR VOLUME 88.2 fL (79-99); NEUTROPHILS % (AUTO) 85.8 % (40.0-77.0); PLATELET COUNT (AUTO) 229 K/uL (130-400); RED BLOOD CELL COUNT(AUTO) 2.94 MIL/uL (4.50-6.20); RED CELL DISTRIBUTION WIDTH 14.1 % (11.0-15.5); WHITE BLOOD COUNT (AUTO) 17.4 K/uL (4.8-10.8)
[2017-09-03 17:46] LABS: INR 1.11 (0.85-1.15); PROTHROMBIN TIME 11.6 SEC (9.6-11.6)
[2017-09-03 17:51] LABS: POTASSIUM 5.3 mmol/L (3.5-5.1)
[2017-09-03] MEDS: ATORVASTATIN CALCIUM 40 MG TABLET PO SCH (21:17)
[2017-09-04] VITALS (29 sets, daily range): BP systolic 90–135; BP diastolic 52–84
[2017-09-04] MEDS: IPRATROPIUM/ALBUTEROL SULFATE 3 ML SOLUTION IH SCH ×4 (00:08→19:20)
[2017-09-04 05:20] LABS: HEMATOCRIT 25.3 % (42-54); MEAN CORPUSCULAR HGB CONC 33.9 g/dL (32.0-36.0); MEAN CORPUSCULAR VOLUME 88.5 fL (79-99); PLATELET COUNT (AUTO) 233 K/uL (130-400); RED BLOOD CELL COUNT(AUTO) 2.86 MIL/uL (4.50-6.20); RED CELL DISTRIBUTION WIDTH 14.4 % (11.0-15.5); WHITE BLOOD COUNT (AUTO) 17.9 K/uL (4.8-10.8)
[2017-09-04] MEDS: LINEZOLID 600 MG/ISO-OSM 300 ML IV SCH ×3 (05:47→17:10)
[2017-09-04] MEDS: LEVOTHYROXINE 100 MCG VIAL IV SCH (05:48)
[2017-09-04 05:49] LABS: CREATININE 4.9 mg/dL (0.5-1.5)
[2017-09-04] MEDS ORDERED: MIDAZOLAM HCL 1 MG/ML 2ML VIAL ONE (09:13)
[2017-09-04] MEDS: ASPIRIN 81MG TAB.CHEW PO SCH (13:14)
[2017-09-04] MEDS: METOPROLOL TARTRATE 25 MG TAB PO SCH ×2 (13:15→14:00)
[2017-09-04] MEDS: LACTOBACILLUS RHAMNOSUS GG 1 EACH CAP.SPRINK PO SCH (13:15)
[2017-09-04] MEDS: AMIODARONE HCL 200 MG TABLET PO SCH ×2 (13:21→22:03)
[2017-09-04] MEDS: FAMOTIDINE 20MG TAB 20 MG TAB PO SCH (13:21)
[2017-09-04] MEDS: MEROPENEM 500 MG VIAL IVP SCH ×2 (13:22→22:04)
[2017-09-04] MEDS: FLUCONAZOLE 200 MG/NS 100 ML 100 ML IV SCH (13:22)
[2017-09-04] MEDS: WATER FOR INJECTION,STERILE 5 ML VIAL INJ SCH (17:00)
[2017-09-04] MEDS: IRON SUCROSE COMPLEX 100 MG in SODIUM CHLORIDE 0.9% 50 ML IV SCH ×2 (17:03→17:10)
[2017-09-04] MEDS: HONEY 1 APPL/ML TUBE TP SCH (17:12)
[2017-09-04] MEDS: ENOXAPARIN SODIUM 30 MG/0.3 ML SQ SCH (18:43)
[2017-09-04] MEDS: ATORVASTATIN CALCIUM 40 MG TABLET PO SCH (22:03)
[2017-09-05] VITALS (22 sets, daily range): BP systolic 99–136; BP diastolic 59–77
[2017-09-05] MEDS: IPRATROPIUM/ALBUTEROL SULFATE 3 ML SOLUTION IH SCH ×4 (00:27→17:33)
[2017-09-05 03:45] LABS: HEMATOCRIT 25.6 % (42-54); MEAN CORPUSCULAR HEMOGLOBIN 30.1 pg (27.0-33.0); MEAN CORPUSCULAR HGB CONC 33.5 g/dL (32.0-36.0); MEAN CORPUSCULAR VOLUME 89.7 fL (79-99); PLATELET COUNT (AUTO) 217 K/uL (130-400); RED BLOOD CELL COUNT(AUTO) 2.85 MIL/uL (4.50-6.20); RED CELL DISTRIBUTION WIDTH 14.3 % (11.0-15.5); WHITE BLOOD COUNT (AUTO) 14.8 K/uL (4.8-10.8)
[2017-09-05 04:20] LABS: CREATININE 4.4 mg/dL (0.5-1.5); MAGNESIUM 2.7 mg/dL (1.80-2.40); PHOSPHORUS 9.1 mg/dL (2.5-4.9); POTASSIUM 4.7 mmol/L (3.5-5.1)
[2017-09-05] MEDS: LEVOTHYROXINE 100 MCG VIAL IV SCH (06:30)
[2017-09-05] MEDS: LACTOBACILLUS RHAMNOSUS GG 1 EACH CAP.SPRINK PO SCH (08:46)
[2017-09-05] MEDS: AMIODARONE HCL 200 MG TABLET PO SCH ×2 (08:46→22:33)
[2017-09-05] MEDS: FAMOTIDINE 20MG TAB 20 MG TAB PO SCH (08:46)
[2017-09-05] MEDS: ASPIRIN 81MG TAB.CHEW PO SCH (08:47)
[2017-09-05] MEDS: ENOXAPARIN SODIUM 30 MG/0.3 ML SQ SCH (08:47)
[2017-09-05] MEDS: INSULIN REGULAR, HUMAN 3ML 100 UNIT in SODIUM CHLORIDE 0.9% 99 ML IV PRN ×2 (08:53)
[2017-09-05] MEDS: HONEY 1 APPL/ML TUBE TP SCH (09:00)
[2017-09-05] MEDS: MEROPENEM 500 MG VIAL IVP SCH ×2 (11:31→22:33)
[2017-09-05] MEDS: FLUCONAZOLE 200 MG/NS 100 ML 100 ML IV SCH (11:32)
[2017-09-05] MEDS: WATER FOR INJECTION,STERILE 5 ML VIAL INJ SCH (14:17)
[2017-09-05] MEDS: LINEZOLID 600 MG/ISO-OSM 300 ML IV SCH (17:51)
[2017-09-05] MEDS: ATORVASTATIN CALCIUM 40 MG TABLET PO SCH (22:33)
[2017-09-05] MEDS: INSULIN HUMULIN R 100 UNIT/ML 3ML SQ SCH (22:36)
[2017-09-06] VITALS (17 sets, daily range): BP systolic 108–126; BP diastolic 68–80
[2017-09-06] MEDS: IPRATROPIUM/ALBUTEROL SULFATE 3 ML SOLUTION IH SCH ×4 (00:26→17:42)
[2017-09-06 03:53] LABS: MEAN CORPUSCULAR HEMOGLOBIN 29.8 pg (27.0-33.0); MEAN CORPUSCULAR HGB CONC 33.2 g/dL (32.0-36.0); MEAN CORPUSCULAR VOLUME 89.6 fL (79-99); PLATELET COUNT (AUTO) 219 K/uL (130-400); RED BLOOD CELL COUNT(AUTO) 2.79 MIL/uL (4.50-6.20); RED CELL DISTRIBUTION WIDTH 14.1 % (11.0-15.5); WHITE BLOOD COUNT (AUTO) 13.3 K/uL (4.8-10.8)
[2017-09-06 04:07] LABS: CREATININE 4.2 mg/dL (0.5-1.5); POTASSIUM 4.9 mmol/L (3.5-5.1)
[2017-09-06] MEDS: LEVOTHYROXINE 100 MCG VIAL IV SCH (06:30)
[2017-09-06] MEDS: INSULIN HUMULIN R 100 UNIT/ML 3ML SQ SCH ×3 (07:30→16:38)
[2017-09-06] MEDS ORDERED: INSULIN GLARGINE 100 UNITS/ML 10 ML VIAL SQ SCH ×3 (09:00→21:00)
[2017-09-06] MEDS: HONEY 1 APPL/ML TUBE TP SCH (09:00)
[2017-09-06] MEDS: LINEZOLID 600 MG/ISO-OSM 300 ML IV SCH ×2 (09:50→17:30)
[2017-09-06] MEDS: FAMOTIDINE 20MG TAB 20 MG TAB PO SCH (09:58)
[2017-09-06] MEDS: ASPIRIN 81MG TAB.CHEW PO SCH (09:58)
[2017-09-06] MEDS: IRON SUCROSE COMPLEX 100 MG in SODIUM CHLORIDE 0.9% 50 ML IV SCH (09:58)
[2017-09-06] MEDS: LACTOBACILLUS RHAMNOSUS GG 1 EACH CAP.SPRINK PO SCH (09:58)
[2017-09-06] MEDS: AMIODARONE HCL 200 MG TABLET PO SCH (09:59)
[2017-09-06] MEDS: ENOXAPARIN SODIUM 30 MG/0.3 ML SQ SCH (09:59)
[2017-09-06] MEDS ORDERED: PHARMACY COMMUNICATION MISC SCH (11:00)
[2017-09-06] MEDS: FLUCONAZOLE 200 MG/NS 100 ML 100 ML IV SCH (12:28)
[2017-09-06] MEDS: MEROPENEM 500 MG VIAL IVP SCH (12:28)
[2017-09-06] MEDS: WATER FOR INJECTION,STERILE 5 ML VIAL INJ SCH (17:00)
== END 2017-09-06 18:15 | disposition short-term general hospital (02) | DRG 3 ==
LOC: DAH 07:41 → DAHIP 07:42 → DAH 07:42 → 2DH 11:53 → 2CV 08-11 10:15 → 2BH 08-15 05:00
PROVIDERS: ADMIT Family Medicine; ATTEND Family Medicine
PROC: 4A023N7 Measurement of Cardiac Sampling and Pressure, Left Heart, Percutaneous Approach (ICD-10-PCS; principal; 2017-08-10)
PROC: B2111ZZ Fluoroscopy of Multiple Coronary Arteries using Low Osmolar Contrast (ICD-10-PCS; 2017-08-10)
PROC: B2151ZZ Fluoroscopy of Left Heart using Low Osmolar Contrast (ICD-10-PCS; 2017-08-10)
PROC: B3121ZZ Fluoroscopy of Left Subclavian Artery using Low Osmolar Contrast (ICD-10-PCS; 2017-08-10)
PROC: 02100Z9 Bypass Coronary Artery, One Artery from Left Internal Mammary, Open Approach (ICD-10-PCS; 2017-08-11)
PROC: 0BH17EZ Insertion of Endotracheal Airway into Trachea, Via Natural or Artificial Opening (ICD-10-PCS; 2017-08-11)
PROC: 5A1955Z Respiratory Ventilation, Greater than 96 Consecutive Hours (ICD-10-PCS; 2017-08-11)
PROC: 021109W Bypass Coronary Artery, Two Arteries from Aorta with Autologous Venous Tissue, Open Approach (ICD-10-PCS; 2017-08-11)
PROC: 06BP4ZZ Excision of Right Saphenous Vein, Percutaneous Endoscopic Approach (ICD-10-PCS; 2017-08-11)
PROC: 5A1D70Z Performance of Urinary Filtration, Intermittent, Less than 6 Hours Per Day (ICD-10-PCS; 2017-08-21)
PROC: 02HV33Z Insertion of Infusion Device into Superior Vena Cava, Percutaneous Approach (ICD-10-PCS; 2017-08-21)
PROC: 5A1D70Z Performance of Urinary Filtration, Intermittent, Less than 6 Hours Per Day (ICD-10-PCS; 2017-08-22)
PROC: 5A1D70Z Performance of Urinary Filtration, Intermittent, Less than 6 Hours Per Day (ICD-10-PCS; 2017-08-23)
PROC: 5A1D70Z Performance of Urinary Filtration, Intermittent, Less than 6 Hours Per Day (ICD-10-PCS; 2017-08-24)
PROC: 5A1D70Z Performance of Urinary Filtration, Intermittent, Less than 6 Hours Per Day (ICD-10-PCS; 2017-08-25)
PROC: 5A1D70Z Performance of Urinary Filtration, Intermittent, Less than 6 Hours Per Day (ICD-10-PCS; 2017-08-27)
PROC: 5A1D70Z Performance of Urinary Filtration, Intermittent, Less than 6 Hours Per Day (ICD-10-PCS; 2017-08-29)
PROC: 5A1D70Z Performance of Urinary Filtration, Intermittent, Less than 6 Hours Per Day (ICD-10-PCS; 2017-09-01)
PROC: 0B113F4 Bypass Trachea to Cutaneous with Tracheostomy Device, Percutaneous Approach (ICD-10-PCS; 2017-09-02)
PROC: 0DH63UZ Insertion of Feeding Device into Stomach, Percutaneous Approach (ICD-10-PCS; 2017-09-02)
PROC: 0DJ08ZZ Inspection of Upper Intestinal Tract, Via Natural or Artificial Opening Endoscopic (ICD-10-PCS; 2017-09-04)
DX: T82.855A Stenosis of coronary artery stent, initial encounter (principal); I63.9 Cerebral infarction, unspecified; J69.0 Pneumonitis due to inhalation of food and vomit; A41.9 Sepsis, unspecified organism; G93.40 Encephalopathy, unspecified; N17.9 Acute kidney failure, unspecified; J15.0 Pneumonia due to Klebsiella pneumoniae; J96.01 Acute respiratory failure with hypoxia; N18.6 End stage renal disease; I48.92 Unspecified atrial flutter; I47.1 Supraventricular tachycardia; D62 Acute posthemorrhagic anemia; J44.0 Chronic obstructive pulmonary disease with (acute) lower respiratory infection; I13.11 Hypertensive heart and chronic kidney disease without heart failure, with stage 5 chronic kidney disease, or end stage renal disease; I25.110 Atherosclerotic heart disease of native coronary artery with unstable angina pectoris; Z99.11 Dependence on respirator [ventilator] status; I48.0 Paroxysmal atrial fibrillation; D69.6 Thrombocytopenia, unspecified; E11.22 Type 2 diabetes mellitus with diabetic chronic kidney disease; E03.9 Hypothyroidism, unspecified; B96.1 Klebsiella pneumoniae [K. pneumoniae] as the cause of diseases classified elsewhere; E11.51 Type 2 diabetes mellitus with diabetic peripheral angiopathy without gangrene; E11.65 Type 2 diabetes mellitus with hyperglycemia; E66.01 Morbid (severe) obesity due to excess calories; E78.5 Hyperlipidemia, unspecified; E87.70 Fluid overload, unspecified; I49.3 Ventricular premature depolarization; Z68.33 Body mass index [BMI] 33.0-33.9, adult; Z74.01 Bed confinement status; Z79.82 Long term (current) use of aspirin; Z79.899 Other long term (current) drug therapy; Z99.2 Dependence on renal dialysis; Z87.442 Personal history of urinary calculi; Z86.73 Personal history of transient ischemic attack (TIA), and cerebral infarction without residual deficits; Z83.3 Family history of diabetes mellitus; Z82.49 Family history of ischemic heart disease and other diseases of the circulatory system
CPT/HCPCS: 36415; 36556; 36600; 70450; 70551; 71010; 71045; 71250; 76770; 80048; 80053; 80061; 81001; 82040; 82140; 82330; 82435; 82550; 82570; 82728; 82803; 82947; 82948; 83036; 83540; 83550; 83605; 83735; 83880; 84100; 84132; 84295; 84300; 84439; 84443; 84481; 84520; 85018; 85025; 85027; 85347; 85610; 85730; 86701; 86704; 86706; 86850; 86900; 86901; 86922; 87040; 87071; 87088; 87205; 87340; 87390; 87520; 87804; 88312; 90935; 93005; 93306; 93458; 93880; 93970; 94002; 94003; 94010; 94640; 94664; 99152; 99153; A4218; A4344; A4606; A7048; C1752; C1760; C1894; C9113; J0171; J0282; J0583; J0610; J0692; J0697; J0885; J1160; J1450; J1644; J1650; J1756; J1815; J1940; J1956; J2001; J2020; J2060; J2185; J2250; J2260; J2270; J2370; J2405; J2440; J2543; J2704; J2710; J2720; J2765; J3010; J3370; J3475; J3480; J3490; J7030; J7040; J7042; J7060; J7120; P9045; P9046; Q9967